=== PATIENT | female | born 1980 | race Caucasian/White ===

== ENCOUNTER 2022-10-27 06:59 | Outpatient (OUT) | payer BC, SELFPAY ==
--- NOTE | 2022-10-27 07:01 | MM_ITS ---
Patient: RENEA RAMOS Exam Date: 10/27/2022 : 1980 Gender:F Ordering : DR VESTA MCCAULEY Admission #: [id number] Family : DR REMIGIO ANDUJAR M.D. Order #: [id number] CLICK HERE TO VIEW EXAM RADIOLOGY REPORT PROCEDURE: MM TOMOSYNTHESIS SCREENING BI COMPARISON: MG MAMM SCREEN 3D BRITNI CAD, 10/26/2021. MG MAMM SCREEN 3D BRITNI CAD, 10/22/2020. MG MAMM SCREEN BRITNI W CAD, 10/21/2019. MG MAMM SCREEN BRITNI W CAD, 10/01/2018. INDICATIONS: Screening Calculator Name NCI Breast Cancer Risk Assessment Tool 5 Year Breast Cancer Risk 0.80% Lifetime Breast Cancer Risk 9.80% Personal Breast Cancer No Personal Ovarian Cancer No Treatments None Family Cancers None LOCATION: [facility] BREAST COMPOSITION: Heterogeneously dense,which may obscure small masses. FINDINGS: DIAGNOSTIC CATEGORY 1--NEGATIVE. RIGHT BREAST: No significant suspicious finding. No significant change has occurred. LEFT BREAST: No significant suspicious finding. No significant change has occurred. RECOMMENDATIONS: ROUTINE MAMMOGRAM AND CLINICAL EVALUATION IN 12 MONTHS. PLEASE NOTE: A NORMAL MAMMOGRAM DOES NOT EXCLUDE THE POSSIBILITY OF BREAST CANCER. A CLINICALLY SUSPICIOUS PALPABLE LUMP SHOULD BE BIOPSIED. Dictated by: Ned Chin M.D. on 10/27/2022 at 14:51 Approved by: Ned Chin M.D. on 10/27/2022 at 14:53
== END 2022-10-27 07:00 | disposition home or self-care (01) ==
LOC: MAMMO 06:59
PROVIDERS: PCP Family Medicine; Visit Provider Obstetrics & Gynecology
DX: Z12.31 Encounter for screening mammogram for malignant neoplasm of breast (principal)
CPT/HCPCS: 77063; 77067

== ENCOUNTER 2023-10-29 09:26 | Outpatient (OUT) | payer BC, SELFPAY ==
--- NOTE | 2023-10-29 09:31 | MM_ITS ---
Patient Name: RENEA RAMOS MR#: [id number] : 1980 Exam Date: 10/29/2023 Ordering Doctor: DR VESTA MCCAULEY RADIOLOGY REPORT PROCEDURE: MM TOMOSYNTHESIS SCREENING BI COMPARISON: MG MAMM SCREEN 3D BRITNI CAD, 10/26/2021. MM TOMOSYNTHESIS SCREENING BI, 10/27/2022. INDICATIONS: Screening Calculator Name NCI Breast Cancer Risk Assessment Tool 5 Year Breast Cancer Risk 0.80% Lifetime Breast Cancer Risk 9.70% Personal Breast Cancer No Personal Ovarian Cancer No Treatments None Family Cancers None LOCATION: [facility] BREAST COMPOSITION: The breasts are heterogeneously dense,which may obscure small masses. FINDINGS: DIAGNOSTIC CATEGORY 2--BENIGN FINDING. NO CHANGE FROM COMPARISON. Scattered benign-appearing lymph nodes are present. RIGHT BREAST: No significant suspicious finding. LEFT BREAST: No significant suspicious finding. RECOMMENDATIONS: ROUTINE MAMMOGRAM AND CLINICAL EVALUATION IN 12 MONTHS. PLEASE NOTE: A NORMAL MAMMOGRAM DOES NOT EXCLUDE THE POSSIBILITY OF BREAST CANCER. A CLINICALLY SUSPICIOUS PALPABLE LUMP SHOULD BE BIOPSIED. Dictated by: Josemanuel Akhtar MD on 10/29/2023 at 10:33 Approved by: Josemanuel Akhtar MD on 10/29/2023 at 10:35
== END 2023-10-29 09:27 | disposition home or self-care (01) ==
LOC: MAMMO 09:26
PROVIDERS: PCP Family Medicine; Visit Provider Obstetrics & Gynecology
DX: Z12.31 Encounter for screening mammogram for malignant neoplasm of breast (principal)
CPT/HCPCS: 77063; 77067

== ENCOUNTER 2024-11-03 07:30 | Outpatient (OUT) | payer BC, SELFPAY ==
--- NOTE | 2024-11-03 07:32 | MM_ITS ---
Patient Name: RENEA RAMOS MR#: [id number] : 1980 Exam Date: 11/03/2024 Ordering Doctor: DR VESTA MCCAULEY RADIOLOGY REPORT PROCEDURE: MM TOMOSYNTHESIS SCREENING BI COMPARISON: MM TOMOSYNTHESIS SCREENING BI, 10/29/2023. MM TOMOSYNTHESIS SCREENING BI, 10/27/2022. MG MAMM SCREEN 3D BRITNI CAD, 10/26/2021. MG MAMM SCREEN BRITNI W CAD, 10/01/2018. INDICATIONS: Screening Calculator Name NCI Breast Cancer Risk Assessment Tool 5 Year Breast Cancer Risk 0.90% Lifetime Breast Cancer Risk 9.60% Personal Breast Cancer No Personal Ovarian Cancer No Treatments None Family Cancers None LOCATION: [facility] BREAST COMPOSITION: There are scattered areas of fibroglandular density. FINDINGS: RIGHT BREAST: No significant suspicious finding. LEFT BREAST: No significant suspicious finding. DIAGNOSTIC CATEGORY 1--NEGATIVE. RECOMMENDATIONS: ROUTINE MAMMOGRAM AND CLINICAL EVALUATION IN 12 MONTHS. PLEASE NOTE: A NORMAL MAMMOGRAM DOES NOT EXCLUDE THE POSSIBILITY OF BREAST CANCER. A CLINICALLY SUSPICIOUS PALPABLE LUMP SHOULD BE BIOPSIED. Dictated by: Polo Amor MD on 11/03/2024 at 12:34 Approved by: Polo Amor MD on 11/03/2024 at 12:39
--- OUTSIDE RECORDS SUMMARY | 2024-11-03 07:33 | XMS_ITS | CCD ---
Author Organization [facility] Inform ion Partnership [facility] Care Team Providers Care Hanger Name Role Phone DR ARMANDO ANDUJAR Primary Care Unavailable GARRICK, DR LEMONS Admitting Unavailable GARRICK, DR LEMONS Attending Unavailable MELISSA, DR KALLIE Holbrook Consulting Unavailable DR VESTA MCCAULEY Consulting Unavailable Lissette Bush Unavailable DO Vesta Mccauley Attending Provider MD Armando Andujar Primary Care Provider Vesta Mccauley Admitting Unavailable Armando Andujar Primary Care Unavailable Vesta Mccauley Attending Unavailable Armando Andujar Primary Care Unavailable Vesta Mccauley Attending Unavailable Vesta Mccauley Admitting Unavailable Armando Andujar MD Primary Care Provider [phone] Armadno Andujar MD Primary Care Provider [phone] ALAN SLOAN Attending Unavailable ARMANDO ANDUJAR Primary Care Unavailable MARYBEL WILL Attending Unavailable ARMANDO ANDUJAR Primary Care Unavailable Armando Andujar MD Unavailable ARMANDO ANDUJAR Attending Unavailable VESTA MCCAULEY Attending Unavailable VESTA MCCAULEY Attending Unavailable VESTA MCCAULEY Attending Unavailable VESTA MCCAULEY Referring Unavailable ARMANDO ANDUJAR Attending Unavailable ARMANDO ANDUJAR Attending Unavailable Allergies Allergy Classification Reported Allergen(s) Allergy Type Date of Onset Reaction(s) Facility (9 sources) Codeine; Translations: [CODEINE] Drug Allergy 10-31-2022 Unknown [facility] (1 source) Codeine Drug Allergy 09-28-[address] [facility] Repository Medications Current Medications Medication Drug Class(es) Dates Sig (Normalized) Sig (Original) acetaminophen 500 mg oral capsule (8 sources) Start: 09-20-2023 Acetaminophen 500 MG capsule 09/20/2023 Active Start: 09-20-2023 take 1-2 capsules by mouth every six hours as needed Acetaminophen Active MG PO September 20, 2023 12:00am FreeTextSi-2 capsule as needed Orally every 6 hrs; Note: Source Status: Taking; Provider: Venu Flores ( ) estradiol 1 mg oral tablet (6 sources) Estrogen Start: 10-22-2023 End: 10-21-2024 take 1 tablet by mouth once daily estradiol (Estrace) 1 MG tablet Indications: Aftercare following surgery , Hormone replacement therapy (HRT) Take 1 tablet (1 mg) by mouth Daily 90 tablet 3 10/22/2023 10/21/2024 Active 24 hr fexofenadine hydrochloride 180 mg / pseudoephedrine hydrochloride 240 mg extended release oral tablet (4 sources) alpha-Adrenergic Agonist, Histamine-1 Receptor Antagonist Start: 04-28-2024 End: 04-28-2025 take 24-180 tablets by mouth every twenty-fou r hours fexofenadine-pseudoep hedrine ER (Moni-D 24) 180-240 MG 24 hr tablet Indications: ETD (Eustachian tube dysfunction), bilateral Take 1 tablet by mouth Daily Do not crush, chew, or split. 30 tablet 11 04/28/2024 04/28/2025 Active ibuprofen 400 mg oral tablet (6 sources) Nonsteroidal Anti-inflammatory Drug take 1 tablet by mouth every six hours as needed for pain ibuprofen 400 MG tablet Take 400 mg by mouth every 6 (six) hours if needed for moderate pain Active methylPREDNISolone 4 mg oral tablet (1 source) Corticosteroid Start: 11-10-2021 methylPREDNISolone 4 MG as directed Orally Once a day for 6 days Oct, Active SUMAtriptan 25 mg oral tablet (9 sources) Serotonin-1b and Serotonin-1d Receptor Agonist Start: 09-20-2023 take 8 tablets by mouth every twenty-fou r hours Sumatriptan Succinate (Imitrex) 25 mg tablet Active 25 MG PO EVERY 2-4 HOURS September 20, 2023 12:00am do not exceed 8 doses per 24 hrs SUMAtriptan (Imi trex) 50 MG tablet every 12 (twelve) hours. Active Imitrex Active traMADol hydrochloride 50 mg oral tablet (3 sources) Opioid Agonist Start: 09-28-2023 End: 04-07-2024 traMADol (Ultram) 50 MG tablet Q4H 09/28/2023 04/07/2024 Discontinued (Other) Completed/Discontinued Medications Medication Drug Class(es) Dates Sig (Normalized) Sig (Original) amoxicillin 500 mg oral tablet (4 sources) Penicillin-class Antibacterial Start: 04-07-2024 End: 04-28-2024 take 2 tablets by mouth in the morning amoxicillin (Amoxil) 500 MG tablet Indications: Non-recurrent acute suppurative otitis media of right ear without spontaneous rupture of tympanic membrane Take 2 tablets (1,000 mg) by mouth in the morning and 2 tablets (1,000 mg) before bedtime. Do all this for 10 days. 40 tablet 04/15/2024 04/28/2024 Discontinued (Other) Augmentin Tablets 875 MG (1 source) Start: 03-30-2015 take 1 tablet by mouth every twelve hours Augmentin Tablets 875 MG 1 by mouth every 12 hours for 10 days Mar, Not-Taking Problems Active Problems Problem Classification Problem Date Documented Da te Episodic/Chronic Abdominal pain (1 source) Abdominal pain; Translations: [Unspecified abdominal pain] 09-28-2023 Episodic Diabetes mellitus without complication (2 sources) Abnormal glucose tolerance test; Translations: [Other abnormal glucose] 09-30-2024 Episodic Essential hypertension (4 sources) Benign essential hypertension; Translations: [Essential (primary) hypertension] Onset: 09-30-2024 09-30-2024 Chronic Headache; including migraine (6 sources) Menstrual status migrainosus; Translations: [Menstrual migraine, not intractable, with status migrainosus] Onset: 10-31-2022 10-31-2022 Chronic Menstrual disorders (2 sources) Excessive and frequent menstruation with regular cycle; Translations: [Excessive and frequent menstruation with irregular cycle] Onset: 09-20-2023 Chronic Other non-traumatic joint disorders (6 sources) Derangement of right ankle joint; Translations: [Other specific joint derangements of right ankle, not elsewhere classified] Onset: 10-31-2022 10-31-2022 Chronic Thyroid disorders (8 sources) Goiter; Translations: [Nontoxic goiter, unspecified] Onset: 10-31-2022 10-31-2022 Chronic Past or Other Problems Problem Classification Problem Date Documented Date Episodic/Chronic Other nervous system disorders (6 sources) Right trigeminal neuralgia; Translations: [Trigeminal neuralgia] Onset: 04-28-2024 04-28-2024 Episodic Other screening for suspected conditions (not mental disorders or infectious disease) (10 sources) Encounter for screening mammogram for malignant neoplasm of breast; Translations: [Mammography abnormal] Onset: 10-26-2021 Episodic Other upper respiratory disease (4 sources) Hypertrophy of nasal turbinates; Translations: [Hypertrophy of nasal turbinates] Onset: 06-11-2024 06-11-2024 Episodic Other upper respiratory disease (4 sources) Deviated nasal septum; Translations: [Deviated nasal septum] Onset: 06-11-2024 06-11-2024 Episodic Other upper respiratory infections (7 sources) Streptococcal sore throat; Translations: [Streptococcal sore throat] Onset: 10-31-2022 10-31-2022 Episodic Otitis media and related conditions (18 sources) Acute suppurative otitis media without spontaneous rupture of ear drum; Translations: [Acute suppurative otitis media without spontaneous rupture of ear drum, right ear] Onset: 04-07-2024 04-07-2024 Episodic Poisoning by nonmedicinal substances (1 source) Toxic effect of venom of hornets, accidental (unintentional), initial encounter Onset: 11-10-2021 Resolved: 11-10-2021 Episodic Unclassified (1 source) eustacian tube dysfunction Onset: 06-11-2024 Viral infection (6 sources) Verruca plantaris; Translations: [Plantar wart] Onset: 10-31-2022 10-31-2022 Episodic Results Test Name Value Interpretation Reference Range Facility CBC (INCLUDES DIFF/PLT)on Basophils (Bld) [#/Vol] 0.049 10*3/uL Normal 0-200 [facility] Comment on above: Performed By: #### 1 0231, 2510, 3729 #### [facility] [address], [address] [place] [id number] Principal Military Analyst: Tom Holder MD Basophils/100 WBC (Bld) 1.0 % Normal [facility] Comment on above: Performed By: #### 1 0231, 7599, 6399 #### [facility] of [address], [address] [place] [address] Principal Military Analyst: Tom Holder MD Eosinophils (Bld) [#/Vol] 0.078 10*3/uL Normal 15-500 [facility] Comment on above: Performed By: #### 1 023, 7599, 6399 #### [facility] of [address], [address] [place] [address] Principal Military Analyst: Tom Holder MD Eosinophils/100 WBC (Bld) 1.6 % Normal [facility] Comment on above: Performed By: #### 1 023, 7599, 6399 #### [facility] of [place] [address] Principal Military Analyst: Tom Holder MD Erythrocyte distribution width (RBC) [Ratio] 12.3 % Normal 11.0-15.0 [facility] Comment on above: Performed By: #### 1 023, 7599, 6399 #### [facility] of [address], [address] [place] [address] Principal Military Analyst: Tom Holder MD Hematocrit (Bld) [Volume fraction] 42.4 % Normal 35.0-45.0 [facility] Comment on above: Performed By: #### 1 023, 7599, 6399 #### [facility] of [place] [address] Principal Military Analyst: Tom Holder MD Hemoglobin (Bld) [Mass/Vol] 14.1 g/dL Normal 11.7-15.5 [facility] Comment on above: Performed By: #### 1 0231, 7599, 6399 #### [facility] of [place] [address] Principal Military Analyst: Tom Holder MD Lymphocytes (Bld) [#/Vol] 2.293 10*3/uL Normal 850-3900 [facility] Comment on above: Performed By: #### 1 023, 7599, 6399 #### [facility] [place] [address] Principal Military Analyst: Tom Holder MD Lymphocytes/100 WBC (Bld) 46.8 % Normal [facility] Comment on above: Performed By: #### 1 230, 7599, 6399 #### [facility] [place] [address] Principal Military Analyst: Tom Holder MD MCH (RBC) [Entitic mass] 30.4 pg Normal 27.0-33.0 [facility] Comment on above: Performed By: #### 1 230, 7599, 6399 #### [facility] [place] [address] Principal Military Analyst: Tom Holder MD MCHC (RBC) [Mass/Vol] 33.3 g/dL Normal 32.0-36.[address] [facility] Comment on above: Result Comment: For adults, a slight decrease in the calculated MCHC value (in the range of 30 to 32 g/dL) is most likely not clinically significant; however, it should be interpreted with caution in correlation with other red cell parameters and the patient's clinical condition. Performed By: #### 1 230, 7599, 6399 #### [facility] [place] [address] Principal Military Analyst: Tom Holder MD MCV (RBC) [Entitic vol] 91.4 fL Normal 80.0-100.0 [facility] Comment on above: Performed By: #### 1 230, 7599, 6399 #### [facility] [place] [address] Principal Military Analyst: Tom Holder MD Monocytes (Bld) [#/Vol] 0.466 10*3/uL Normal 200-950 [facility] Comment on above: Performed By: #### 1 023, 7599, 6399 #### [facility] [place] [address] Principal Military Analyst: Tom Holder MD Monocytes/100 WBC (Bld) 9.5 % Normal [facility] Comment on above: Performed By: #### 1 023, 7599, 6399 #### [facility] of [place] [address] Principal Military Analyst: Tom Holder MD Neutrophils (Bld) [#/Vol] 2.014 10*3/uL Normal 6408-5956 [facility] Comment on above: Performed By: #### 1 0231, 7599, 6399 #### [facility] of [address], [address] [place] [address] Principal Military Analyst: Tom Holedr MD Neutrophils/100 WBC (Bld) 41.1 % Normal [facility] Comment on above: Performed By: #### 1 023, 7599, 6399 #### [facility] of [place] [address] Principal Military Analyst: Tom Holder MD Platelet mean volume (Bld) [Entitic vol] 9.7 fL Normal 7.5-12.5 [facility] Comment on above: Performed By: #### 1 023, 7599, 6399 #### [facility] of [place] [address] Principal Military Analyst: Tom Holder MD Platelets (Bld) [#/Vol] 261 10*3/uL Normal 140-400 [facility] Comment on above: Performed By: #### 1 023, 7599, 6399 #### [facility] of [place] [address] Principal Military Analyst: Tom Holder MD RBC (Bld) [#/Vol] 4.64 10*6/uL Normal 3.80-5.10 [facility] Comment on above: Performed By: #### 1 0231, 7599, 6399 #### [facility] of [place] [address] Principal Military Analyst: Tom Holder MD WBC (Bld) [#/Vol] 4.9 10*3/uL Normal 3.8-10.8 [facility] Comment on above: Performed By: #### 1 0231, 7599, 6399 #### [facility] of [address], [address] [place] [address] Principal Military Analyst: Tom Holder MD [facility] METABOLIC PANE [facility] 10-01-2024 Albumin [Mass/Vol] 4.5 g/dL Normal 3.6-5.1 [facility] Comment on above: Performed By: #### 1 0231, 0, 6399 #### [facility] of [address], [address] [place] [address] Principal Military Analyst: Tom Holder MD Albumin/Globulin [Mass ratio] 1.6 {ratio} Normal 1.0-2.5 [facility] Comment on above: Performed By: #### 1 0231, 7599, 6399 #### [facility] of [address], [address] [place] [address] Principal Military Analyst: Tom Holder MD ALP [Catalytic activity/Vol] 38 U/L Normal 31-125 [facility] Comment on above: Performed By: #### 1 023, 7599, 6399 #### [facility] of [place] [address] Principal Military Analyst: Tom Holder MD ALT [Catalytic activity/Vol] 16 U/L Normal 6-29 [facility] Comment on above: Performed By: #### 1 023, 7599, 6399 #### [facility] of [address], [address] [place] [address] Principal Military Analyst: Tom Holder MD AST [Catalytic activity/Vol] 17 U/L Normal 10-35 [facility] Comment on above: Performed By: #### 1 0231, 0, 6399 #### [facility] of [place] [address] Principal Military Analyst: Tom Holder MD Bilirubin [Mass/Vol] 0.8 mg/dL Normal 0.2-1.2 [facility] Comment on above: Performed By: #### 1 0231, 7599, 6399 #### [facility] of [address], [address] [place] [address] Principal Military Analyst: Tom Holder MD BUN/CREATININE RATIO SEE NOTE: Normal 6-22 [facility] Comment on above: Result Comment: Not Reported: BUN and Creatinine are within reference range. Performed By: #### 1 0231, 7600, 6399 #### [facility] [address], [address] [place] [address] Principal Military Analyst: Tom Holder MD Calcium [Mass/Vol] 9.8 mg/dL Normal 8.6-10.2 [facility] Comment on above: Performed By: #### 1 0231, 0, 6399 #### [facility] [address], [address] [place] [address] Principal Military Analyst: Tom Holder MD Chloride [Moles/Vol] 103 mmol/L Normal 98-110 [facility] Comment on above: Performed By: #### 1 0231, 0, 6399 #### [facility] of [address], [address] [place] [address] Principal Military Analyst: Tom Holder MD CO2 [Moles/Vol] 29 mmol/L Normal 20-32 [facility] Comment on above: Performed By: #### 1 0231, 0, 6399 #### [facility] [place] [address] Principal Military Analyst: Tom Holder MD Creatinine [Mass/Vol] 0.80 mg/dL Normal 0.50-0.[address] [facility] Comment on above: Performed By: #### 1 0231, 0, 6399 #### [facility] of [address], [address] [place] [address] Principal Military Analyst: Tom Holder MD GFR/1.73 sq M.predicted among non-blacks MDRD (S/P/Bld) [Vol rate/Area] 92 mL/min/{1.73_m2} Normal > OR = 60 [facility] Comment on above: Performed By: #### 1 0231, 0, 6399 #### [facility] of [address], [address] [place] [address] Principal Military Analyst: Tom Holder MD Globulin (S) [Mass/Vol] 2.8 g/dL Normal 1.9-3.7 [facility] Comment on above: Performed By: #### 1 0231, 7600, 6399 #### [facility] of [address], [address] [place] [address] Principal Military Analyst: Tom Holder MD Glucose [Mass/Vol] 80 mg/dL Normal 65-99 [facility] Comment on above: Result Comment: Fasting reference interval Performed By: #### 1 0231, 7600, 6399 #### [facility] of [address], [address] [place] [address] Principal Military Analyst: Tom Holder MD Potassium [Moles/Vol] 4.2 mmol/L Normal 3.5-5.[address] [facility] Comment on above: Performed By: #### 1 0231, 7599, 6399 #### [facility] of [address], [address] [place] [address] Principal Military Analyst: Tom Holder MD Protein [Mass/Vol] 7.3 g/dL Normal 6.1-8.1 [facility] Comment on above: Performed By: #### 1 0231, 7600, 6399 #### [facility] of [address], [address] [place] [address] Principal Military Analyst: Tom Holder MD Sodium [Moles/Vol] 139 mmol/L Normal 135-146 [facility] Comment on above: Performed By: #### 1 0231, 7600, 6399 #### [facility] of [address], [address] [place] [address] Principal Military Analyst: Tom Holder MD Urea nitrogen [Mass/Vol] 11 mg/dL Normal 7-25 [facility] Comment on above: Performed By: #### 1 0231, 7600, 6399 #### [facility] of [address], [address] [place] [address] Principal Military Analyst: Tom Holder MD LIPID PANEL, [facility] 09-14 Cholesterol [Mass/Vol] 234 mg/dL High <200 [facility] Comment on above: Order Comment: FASTI NG:YES FASTING: YES Performed By: #### 1 0231, 7600, 6399 #### [facility] [address], [address] [place] [address] Principal Military Analyst: Tom Holder MD Cholesterol in HDL [Mass/Vol] 71 mg/dL Normal > OR = 50 [facility] Comment on above: Order Comment: FASTI NG:YES FASTING: YES Performed By: #### 1 0231, 7600, 6399 #### [facility] [address], [address] [place] [address] Principal Military Analyst: Tom Holder MD Cholesterol in LDL [Mass/Vol] 147 mg/dL High [facility] Comment on above: Order Comment: FASTI NG:YES FASTING: YES Result Comment: Refe rence range: <100 Desirable range <100 mg/dL for primary prevention; <70 mg/dL for patients with CHD or diabetic patients with > or = 2 CHD risk factors. LDL-C is now calculated using the Michael-Mehul calculation, which is a validated novel method providing better accuracy than the Friedewald equation in the estimation of LDL-C. Michael RIVERA et al. JONATHAN. 2013;310(19): 8479-8408 (http://education.[employer]/faq/YZS059) Performed By: #### 1 0231, 8210, 6399 #### [facility] [address], [address] [place] [address] Principal Military Analyst: Tom Holder MD Cholesterol.total/Chol esterol in HDL [Mass ratio] 3.3 {ratio} Normal <5.0 [facility] Comment on above: Order Comment: FASTI NG:YES FASTING: YES Performed By: #### 1 0231, 7600, 6399 #### [facility] [address], [address] [place], [place] [id number] Principal Military Analyst: Tom Holder MD NON HDL CHOLESTEROL 163 mg/dL (calc) High <130 [facility] Comment on above: Order Comment: FASTI NG:YES FASTING: YES Result Comment: For patients with diabetes plus 1 major ASCVD risk factor, treating to a non-HDL-C goal of <100 mg/dL (LDL-C of <70 mg/dL) is considered a therapeutic option. Performed By: #### 1 0231, 7600, 6399 #### [facility] [address], [address] [place] [address] Principal Military Analyst: Tom Holder MD Triglyceride [Mass/Vol] 68 mg/dL Normal <150 [facility] Comment on above: Order Comment: FASTI NG:YES FASTING: YES Performed By: #### 1 0231, 7600, 6399 #### [facility] [address], [address] [place] [address] Principal Military Analyst: Tom Holder MD TSH W/REFLEX TO FT4on 2024 TSH W/REFLEX TO FT4 1.66 mIU/L Normal [facility] Comment on above: Result Comment: Refe rence Range > or = 20 Years 0.40-4.50 Ranges First trimester 0.26-2.66 Second trimester 0.55-2.73 Third trimester 0.43-2.91 Performed By: #### 1 0231, 7600, 6399 #### [facility] [address], [address] [place] [address] Principal Military Analyst: Tom Holder MD Activated partial thrombopla stin time (aPTT) in platelet poor plasma by coagulation aOrdered By: Vesta Mccauley on 09-28-2023 aPTT Coag (PPP) [Time] 26.8 s 25.1-36.5 [facility] Comment on above: A hematocrit value g reater than 55% may lead to inaccurate results in coagulation testing. Patients having hematocrit values >55% require a special collection tube for coagulation studies. Please contact the laboratory at [phone] for redraw instructions. Alanine aminotransferase [En zymatic activity/volume] in Serum or PlasmaOrdered By: Vesta Mccauley on 09-28-2023 ALT [Catalytic activity/Vol] 12 U/L Normal 7-52 [facility] Comment on above: Performed By: #### P T, PTT, CBC, CMP #### [address] Albumin [Mass/volume] in Ser um or Plasma by Bromocresol green (BCG) dye binding methoOrdered By: Vesta Mccauley on 09-28-2023 Albumin BCG dye [Mass/Vol] 3.8 g/dL 3.5-5.[address] [facility] Alkaline phosphatase [Enzyma tic activity/volume] in Serum or PlasmaOrdered By: Vesta Mccauley on 09-28-2023 ALP [Catalytic activity/Vol] 38 U/L Normal 34-[address] [facility] Comment on above: Performed By: #### P T, PTT, CBC, CMP #### [address] Aspartate aminotransferase [ Enzymatic activity/volume] in Serum or PlasmaOrdered By: Vesta Mccauley on 09-28-2023 AST [Catalytic activity/Vol] 14 U/L Normal 13-[address] [facility] Comment on above: Performed By: #### P T, PTT, CBC, CMP #### [address] Automated basophil %Ordered By: Vesta Mccauley on 09-28-2023 Basophils/100 WBC (Bld) 1.0 % Normal . [facility] Comment on above: Performed By: #### P T, PTT, CBC, CMP #### [address] Automated basophil countOrde red By: Vesta Mccauley on 09-28-2023 Basophils (Bld) [#/Vol] 0.1 10*3/uL Normal 0.0-0.[address] [facility] Comment on above: Result Comment: PERF ORMED BY: [place] [address] PATHOLOGIST BLOCK INSPECTOR EPHRAIM STEWART M.D. Performed By: #### P T, PTT, CBC, CMP #### [address] Automated blood monocyte cou ntOrdered By: Vesta Mccauley on 09-28-2023 Monocytes (Bld) [#/Vol] 0.7 10*3/uL Normal 0.0-0.[address] [facility] Comment on above: Performed By: #### P T, PTT, CBC, CMP #### [address] Automated eosinophil %Ordere d By: Vesta Mccauley on 09-28-2023 Eosinophils/100 WBC (Bld) 3.1 % Normal . [facility] Comment on above: Performed By: #### P T, PTT, CBC, CMP #### [address] Automated eosinophil countOr dered By: Vesta Mccauley on 09-28-2023 Eosinophils (Bld) [#/Vol] 0.2 10*3/uL Normal 0.0-0.[address] [facility] Comment on above: Performed By: #### P T, PTT, CBC, CMP #### [address] Automated monocyte %Ordered By: Vesta Mccauley on 09-28-2023 Monocytes/100 WBC (Bld) 13.2 % Normal . [facility] Comment on above: Performed By: #### P T, PTT, CBC, CMP #### [address] Automated neutrophil %Ordere d By: Vesta Mccauley on 09-28-2023 Neutrophils/100 WBC (Bld) 49.1 % Normal . [facility] Comment on above: Performed By: #### P T, PTT, CBC, CMP #### [address] Bilirubin.total [Mass/volume ] in Serum or PlasmaOrdered By: Vesta Mccauley on 09-28-2023 Bilirubin [Mass/Vol] 0.5 mg/dL Normal 0.3-1.0 [facility] Comment on above: Performed By: #### P T, PTT, CBC, CMP #### [address] Calcium [Mass/volume] in Ser um or PlasmaOrdered By: Vesta Mccauley on 09-28-2023 Calcium [Mass/Vol] 8.6 mg/dL Normal 8.6-10.3 [facility] Comment on above: Performed By: #### P T, PTT, CBC, CMP #### [address] Carbon dioxide, total [Moles /volume] in Serum or PlasmaOrdered By: Vesta Mccauley on 09-28-2023 CO2 [Moles/Vol] 24.6 mmol/L Normal 21.0-31.0 [facility] Comment on above: Performed By: #### P T, PTT, CBC, CMP #### [address] Chloride [Moles/volume] in S romina or PlasmaOrdered By: Vesta Mccauley on 09-28-2023 Chloride [Moles/Vol] 108 mmol/L High 98-107 [facility] Comment on above: Performed By: #### P T, PTT, CBC, CMP #### [address] Complete Blood Count Auto Di ffon 09-28-2023 Mean Corpuscular HGB Conc 33.8 g/dL Normal 32.0-35.0 [facility] Comment on above: Performed By: #### P T, PTT, CBC, CMP #### [address] NRBC% 0.1 /100{WBC} Normal 0-0.5 [facility] Comment on above: Performed By: #### P T, PTT, CBC, CMP #### [facility] [address] [place] [address] Comprehensive Metabolic Pane noemí 09-28-2023 Albumin [Mass/Vol] 3.8 g/dL Normal 3.5-5.7 [facility] Comment on above: Performed By: #### P T, PTT, CBC, CMP #### [address] Creatinine Clr Calc Pharmacy 95.19 Normal [facility] Comment on above: Result Comment: PERF ORMED BY: [place] [address] PATHOLOGIST BLOCK INSPECTOR EPHRAIM STEWART M.D. Performed By: #### P T, PTT, CBC, CMP #### [address] GFR/1.73 sq M.predicted MDRD (S/P/Bld) [Vol rate/Area] mL/min/{1.73_m2} Normal [facility] Comment on above: Performed By: #### P T, PTT, CBC, CMP #### [address] Creatinine [Mass/volume] in Serum or PlasmaOrdered By: Vesta Mccauley on 09-28-2023 Creatinine [Mass/Vol] 0.78 mg/dL Normal 0.60-1.20 [facility] Comment on above: Performed By: #### P T, PTT, CBC, CMP #### [address] Erythrocyte distribution wid th [Ratio] by Automated countOrdered By: Vesta Mccauley on 09-28-2023 Erythrocyte distribution width (RBC) [Ratio] 15.0 % Normal 11.9-15.[address] [facility] Comment on above: Performed By: #### P T, PTT, CBC, CMP #### [address] Erythrocytes [#/volume] in B lood by Automated countOrdered By: Vesta Mccauley on 09-28-2023 RBC (Bld) [#/Vol] 3.42 10*6/uL Low 3.60-5.00 [facility] Comment on above: Performed By: #### P T, PTT, CBC, CMP #### [address] Glucose [Mass/volume] in Ser um or PlasmaOrdered By: Vesta Mccauley on 09-28-2023 Glucose [Mass/Vol] 98 mg/dL Normal 70-100 [facility] Comment on above: ADA recommended refe rence rangeRandom Glucose Reference Range is dependent on time and content of last meal. Glucose of more than 200 mg/dL in a nonstressed, ambulatory subject supports the diagnosis of Diabetes Mellitus. Result Comment: [place] om Glucose Reference Range is dependent on time and content of last meal. Glucose of more than 200 mg/dL in a nonstressed, ambulatory subject supports the diagnosis of Diabetes Mellitus. ADA recommended reference range Performed By: #### P T, PTT, CBC, CMP #### [address] HCG ( test) IA.rapi d Ql (U)Ordered By: Brayden Kumar on 09-28-2023 HCG ( test) Ql (U) Negative [facility] HCG,Urineon 09-28-2023 Beta HCG ( test) Ql (U) Negative Normal [facility] Comment on above: Result Comment: PERF ORMED BY: [place] [address] PATHOLOGIST BLOCK INSPECTOR EPHRAIM STEWART M.D. Performed By: #### U HCG ####[facility] [place] [address] Hematocrit [Volume Fraction] of Blood by Automated countOrdered By: Vesta Mccauley on 09-28-2023 Hematocrit (Bld) [Volume fraction] 29.4 % Low 34.0-46.[address] [facility] Comment on above: Performed By: #### P T, PTT, CBC, CMP #### [address] Hemoglobin [Mass/volume] in BloodOrdered By: Vesta Mccauley on 09-28-2023 Hemoglobin (Bld) [Mass/Vol] 9.9 g/dL Low 11.8-15.[address] [facility] Comment on above: Performed By: #### P T, PTT, CBC, CMP #### [address] INR in Platelet poor plasma by Coagulation assayOrdered By: Vesta Mccauley on 09-28-2023 INR Coag (PPP) [Relative time] 1.1 {INR} Normal [facility] Comment on above: INR Therapeutic Rang e A) Pre- and Peroperative OAT started two weeks before surgery. NOT HIP SURGERY: 1.5 - 2.5 HIP SURGERY: 2 - 3B) Primary and secondary prevention of venous THROMBOSIS: 2 - 3C) Active venous thrombosis, pulmonary embolismand prevention of recurrent venous thrombosis: 2 - 3D) Prevention of arterial thromboembolismincluding patients with mechanical heart valves: 3 - 4.5 Result Comment: INR Therapeutic Range A) Pre- and Peroperative OAT started two weeks before surgery. NOT HIP SURGERY: 1.5 - 2.5 HIP SURGERY: 2 - 3 B) Primary and secondary prevention of venous THROMBOSIS: 2 - 3 C) Active venous thrombosis, pulmonary embolism and prevention of recurrent venous thrombosis: 2 - 3 D) Prevention of arterial thromboembolism including patients with mechanical heart valves: 3 - 4.5 Performed By: #### P T, PTT, CBC, CMP #### [address] 09-28-2023 L Specimen: [id number] Received: 09/28/23 Status: RAJINDER Guan Num: [id number] Spec Type: Surgical Subm Dr: Vesta Mccauley DO Tissues: A Uterus w/ or w/o tubes ovaries except neoplastic or prolap (CERVIX, BRITNI TU Procedures: HE/, Gross/Micro L5 Age/ Patient Sex Location Account Attending Physician Renea Coleman 43/F [place] [id number] Vesta Mccauley DO SPEC NUM: [id number] RECD: 09/28/23 STATUS: RAJINDER GUAN NUM: [id number] DIANE: 09/28/23- SUBM DR: Vesta Mccauley DO ENTERED: 09/28/[address] [facility] [address]: SPEC TYPE: Surgical DEPT: S ORDERED: HE/, Gross/Micro L5 ORDERED: HE, Gross/Micro L5 Pathological Diagnosis Uterus, cervix, bilateral tubes and ovaries, total hysterectomy with bilateral salpingo oophorectomy: -Cervix with occasional nabothian cysts, and small focal healing superficial chronic u lceration above 1 cyst with moderate congestion without dysplasia -Corpus with desynchronized endometrium including weakly proliferative glandular activity, and occasional weakly type secretory glands without hyperplasia or atypia -Incidental focal mild chronic post ablation change of the superficial endometrial mucosa -Incidental patchy severe adenomyosis without secondary hyperplasia or atypia -Right ovary with multiple and large follicular cysts, a few small corpus albicans including 1 evolving corpus albicans, and 1 large residual luteal cyst with possibly small admixed portion of chocolate cystic wall -Left ovary also with multiple small follicular cysts, 1 small Walthard type cyst, 1 large corpus luteum, several small corpus albicans and some other small resolving elements similar to the right ovary -Fimbriated right fallopian tube without significant histopathological changes except 1 small inclusion cyst of the tubal type, and 1 small focus of tubal endometriosis without atypia -Fimbriated left fallopian tube also without significant histopathological findings except few small inclusion cysts of the tubal type, and 1 small Walthard cyst Specimen: [id number] Received: 09/28/23 Status: RAJINDER Guan Num: [id number] Spec Type: Surgical Subm Dr: Vesta Mccauley DO Tissues: A Uterus w/ or w/o tubes ovaries except neoplastic or prolap (CERVIX, BRITNI TU Procedures: , Gross/Micro L5 Patient: Renea Coleman [id number] (Continued) Specimen: [id number] Received: 09/28/23 (Continued) Signed (signature on file) Anton Rivera MD 10/01/231910 Specimen: [id number] Received: 09/28/23 Status: RAJINDER Jayalex Num: [id number] Spec Type: Surgical Subm Dr: Vesta Mccauley,DO Tissues: A Uterus w/ or w/o tubes ovaries except neoplastic or prolap (CERVIX, BRITNI TU Procedures: , Gross/Micro L5 Patient: Renea Coleman [id number] (Continued) Specimen: [id number] Received: 09/28/23 (Continued) Clinical Information Cyst of right ovary, menorrhagia, dysmenorrhea, endometriosis, weight 218 g Gross Description Received in formalin, labeled with the patient's name, date of and uterus, cervix, bilateral tubes and ovaries is a 195 g uterus with attached cervix and bilateral adnexa. The uterus measures 5.4 cm cornu to cornu, 9.3 cm fundus to os, 4.3 cm anterior-posterior and covered by smooth and glistening wolfe-purple serosa. The roughened brown cervix is 1.8 cm long and 3.4 cm wide, leading to a 3.2 x 2.9 cm ectocervix with a 0.5 x 0.2 cm wide os. The 3.5 cm long and 0.3-0.9 cm wide endocervical canal leads to a triangular 4.6 cm fundus to internal os and 2.6 cm cornu to cornu endometrial cavity. Sectioning into the cervix demonstrates multiple mucinous filled cysts ranging from 0.1 to 0.6 cm. The soft wolfe-pink 0.1 cm thick endometrium overlies a 2.1 cm thick wolfe trabeculated myometrium. There is a 0.3 x 0.3 cm possible hemorrhagic cyst located within the posterior myometrium. No additional cysts, nodules or discrete masses are identified. The right adnexa involves a 44.4 g, 6.1 x 4.5 x 4.1 cm lobulated, cystic wolfe-purple with an attached 5.2 cm in length by 0.6 to 0.7 cm in diameter fimbriated fallopian tube covered by unremarkable wolfe-purple serosa. Sectioning into the ovary demonstrates a cystic cut surface ranging from 3.4 cm to 0.3 cm and containing hemorrhagic and translucent serous contents. There is normal ovari (more content not included)... Normal [facility] LeukoReduced RBCon LeukoReduced RBC READY Normal [facility] Leukocytes [#/volume] correc christy for nucleated erythrocytes in Blood by Automated counOrdered By: Vesta Mccauley on 09-28-2023 WBC corrected for nucl RBC Auto (Bld) [#/Vol] 5.6 10*3/uL 3.8-11.[address] [facility] Leukocytes [#/volume] in Blo od by Automated countOrdered By: Vesta Mccauley on 09-28-2023 WBC (Bld) [#/Vol] 5.6 10*3/uL Normal 3.8-11.6 [facility] Comment on above: Performed By: #### P T, PTT, CBC, CMP #### [facility] [address] Lymphocytes [#/volume] in Bl ood by Automated countOrdered By: Vesta Mccauley on 09-28-2023 Lymphocytes (Bld) [#/Vol] 1.9 10*3/uL Normal 1.00-4.[address] [facility] Comment on above: Performed By: #### P T, PTT, CBC, CMP #### [address] Lymphocytes/100 leukocytes i n Blood by Automated countOrdered By: Vesta Mccauley on 09-28-2023 Lymphocytes/100 WBC (Bld) 33.6 % Normal . [facility] Comment on above: Performed By: #### P T, PTT, CBC, CMP #### [address] MCH [Entitic mass] by Automa christy countOrdered By: Vesta Mccauley on 09-28-2023 MCH (RBC) [Entitic mass] 29.1 pg Normal 24.7-34.[address] [facility] Comment on above: Performed By: #### P T, PTT, CBC, CMP #### [address] MCHC Auto (RBC) [Mass/Vol]Or dered By: Vesta Mccauley on 09-28-2023 MCHC (RBC) [Mass/Vol] 33.8 g/dL 32.0-35.0 [facility] MCV [Entitic volume] by Auto mated countOrdered By: Vesta Mccauley on 09-28-2023 MCV (RBC) [Entitic vol] 86.0 fL Normal 80-[address] [facility] Comment on above: Performed By: #### P T, PTT, CBC, CMP #### [address] Neutrophils [#/volume] in Bl ood by Automated countOrdered By: Vesta Mccauley on 09-28-2023 Neutrophils (Bld) [#/Vol] 2.7 10*3/uL Normal 1.8-7.[address] [facility] Comment on above: Performed By: #### P T, PTT, CBC, CMP #### [facility] [address] [place] [address] No Panel InformationOrdered By: Vesta Mccauley on 09-28-2023 Estimated GFR (CKD-EPI) > 60.0 mL/Min [facility] Creatinine Clearance (Chem 95.[address] [facility] Nucleated erythrocytes [Pres ence] in Blood by Automated countOrdered By: Vesta Mccauley on 09-28-2023 Nucleated RBC Auto Ql (Bld) 0.1 /100{WBC} 0-0.[address] [facility] Partial Thromboplastin Timeo n 09-28-2023 aPTT Coag (Bld) [Time] 26.8 s Normal 25.1-36.5 [facility] Comment on above: Result Comment: A he matocrit value greater than 55% may lead to inaccurate results in coagulation testing. Patients having hematocrit values >55% require a special collection tube for coagulation studies. Please contact the laboratory at [phone] for redraw instructions. PERFORMED BY: [place] [address] PATHOLOGIST BLOCK INSPECTOR EPHRAIM STEWART M.D. Performed By: #### P T, PTT, CBC, CMP #### [facility] [address] [place] [address] Platelet mean volume [Entiti c volume] in Blood by Automated countOrdered By: Vesta Mccauley on 09-28-2023 Platelet mean volume (Bld) [Entitic vol] 7.0 fL Normal 6.3-10.[address] [facility] Comment on above: Performed By: #### P T, PTT, CBC, CMP #### [facility] [address] [place] [address] Platelets [#/volume] in Bloo d by Automated countOrdered By: Vesta Mccauley on 09-28-2023 Platelets (Bld) [#/Vol] 276 10*3/uL Normal 150-[address] [facility] Comment on above: Performed By: #### P T, PTT, CBC, CMP #### [facility] [address] Potassium [Moles/volume] in Serum or PlasmaOrdered By: Vesta Mccauley on 09-28-2023 Potassium [Moles/Vol] 4.1 mmol/L Normal 3.5-5.1 [facility] Comment on above: Performed By: #### P T, PTT, CBC, CMP #### [address] Protein [Mass/volume] in Ser um or PlasmaOrdered By: Vesta Mccauley on 09-28-2023 Protein [Mass/Vol] 6.5 g/dL Normal 6.4-8.9 [facility] Comment on above: Performed By: #### P T, PTT, CBC, CMP #### [address] Prothrombin time (PT)Ordered By: Vesta Mccauley on 09-28-2023 PT Coag (PPP) [Time] 12.4 s Normal 9.0-12.9 [facility] Comment on above: A hematocrit value g reater than 55% may lead to inaccurate results in coagulation testing. Patients having hematocrit values >55% require a special collection tube for coagulation studies. Please contact the laboratory at [phone] for redraw instructions. Result Comment: A he matocrit value greater than 55% may lead to inaccurate results in coagulation testing. Patients having hematocrit values >55% require a special collection tube for coagulation studies. Please contact the laboratory at [phone] for redraw instructions. Performed By: #### P T, PTT, CBC, CMP #### [address] Serum globulin measurement b y calculation (mass/volume)Ordered By: Vesta Mccauley on 09-28-2023 Globulin (S) [Mass/Vol] 2.7 g/dL Normal [facility] Comment on above: Performed By: #### P T, PTT, CBC, CMP #### [address] Serum or plasma albumin/glob ulin mass ratioOrdered By: Vesta Mccauley on 09-28-2023 Albumin/Globulin [Mass ratio] 1.4 {ratio} Normal [facility] Comment on above: Performed By: #### P T, PTT, CBC, CMP #### [address] Serum or plasma anion gap de terminationOrdered By: Vesta Mccauley on 09-28-2023 Anion gap [Moles/Vol] 8.5 mmol/L Normal 6.0-15.0 [facility] Comment on above: Performed By: #### P T, PTT, CBC, CMP #### [facility] [address] [place] [address] Sodium [Moles/volume] in Ser um or PlasmaOrdered By: Vesta Mccauley on 09-28-2023 Sodium [Moles/Vol] 137 mmol/L Normal 136-145 [facility] Comment on above: Performed By: #### P T, PTT, CBC, CMP #### [facility] [address] [place] [address] Type and Screenon 09-28-2023 ABO and Rh group Nom (Bld) Blood group O Rh(D) positive Normal [facility] Comment on above: Order Comment: ON HO LD. PT HAVING SURGERY 09/27/23. Transfuse now? N Result Comment: PERF ORMED BY: [place] [address] PATHOLOGIST BLOCK INSPECTOR EPHRAIM STEWART M.D. Urea nitrogen [Mass/volume] in Serum or PlasmaOrdered By: Vesta Mccauley on 09-28-2023 Urea nitrogen [Mass/Vol] 12 mg/dL Normal 7-[address] [facility] Comment on above: Performed By: #### P T, PTT, CBC, CMP #### [facility] [address] [place] [address] Alanine aminotransferase [En zymatic activity/volume] in Serum or PlasmaOrdered By: Vesta Mccauley on 09-21-2023 ALT [Catalytic activity/Vol] 8 U/L Normal 7-[address] [facility] Comment on above: Performed By: #### C MP ####[address] Albumin [Mass/volume] in Ser um or Plasma by Bromocresol green (BCG) dye binding methoOrdered By: Vesta Mccauley on 09-21-2023 Albumin BCG dye [Mass/Vol] 3.1 g/dL 3.5-5.[address] [facility] Alkaline phosphatase [Enzyma tic activity/volume] in Serum or PlasmaOrdered By: Vesta Mccauley on 09-21-2023 ALP [Catalytic activity/Vol] 30 U/L Low 34-[address] [facility] Comment on above: Performed By: #### C MP ####[address] Aspartate aminotransferase [ Enzymatic activity/volume] in Serum or PlasmaOrdered By: Vesta Mccauley on 09-21-2023 AST [Catalytic activity/Vol] 10 U/L Low 13-[address] [facility] Comment on above: Performed By: #### C MP ####[address] Automated basophil %Ordered By: Vesta Mccauley on 09-21-2023 Basophils/100 WBC (Bld) 0.4 % Normal . [facility] Comment on above: Performed By: #### C BC ####[address] Automated basophil countOrde red By: Vesta Mccauley on 09-21-2023 Basophils (Bld) [#/Vol] 0.0 10*3/uL Normal 0.0-0.[address] [facility] Comment on above: Result Comment: PERF ORMED BY: [facility] [address] [place] [place] [address] PATHOLOGIST BLOCK INSPECTOR EPHRAIM STEWART M.D. Performed By: #### C BC ####[address] Automated blood monocyte cou ntOrdered By: Vesta Mccauley on 09-21-2023 Monocytes (Bld) [#/Vol] 1.1 10*3/uL High 0.0-0.[address] [facility] Comment on above: Performed By: #### C BC ####[address] Automated eosinophil %Ordere d By: Vesta Mccauley on 09-21-2023 Eosinophils/100 WBC (Bld) 0.0 % Normal . [facility] Comment on above: Performed By: #### C BC ####[address] Automated eosinophil countOr dered By: Vesta Mccauley on 09-21-2023 Eosinophils (Bld) [#/Vol] 0.0 10*3/uL Normal 0.0-0.[address] [facility] Comment on above: Performed By: #### C BC ####[address] Automated monocyte %Ordered By: Vesta Mccauley on 09-21-2023 Monocytes/100 WBC (Bld) 10.8 % Normal . [facility] Comment on above: Performed By: #### C BC ####[address] Automated neutrophil %Ordere d By: Vesta Mccauley on 09-21-2023 Neutrophils/100 WBC (Bld) 70.1 % Normal . [facility] Comment on above: Performed By: #### C BC ####[address] Bilirubin.total [Mass/volume ] in Serum or PlasmaOrdered By: Vesta Mccauley on 09-21-2023 Bilirubin [Mass/Vol] 1.3 mg/dL High 0.3-1.0 [facility] Comment on above: Samples from patient s who have taken Naproxen have shown spurious elevation in Total Bilirubin levels. A metabolite of Naproxen, O-desmethylnaproxen, has been shown to interfere with the Jendrassik-Grof method for measuring Total Bilirubin. Result Comment: Samp les from patients who have taken Naproxen have shown spurious elevation in Total Bilirubin levels. A metabolite of Naproxen, O-desmethylnaproxen, has been shown to interfere with the Jendrassik-Grof method for measuring Total Bilirubin. Performed By: #### C MP ####[place] [id number] [facility] Calcium [Mass/volume] in Ser um or PlasmaOrdered By: Vesta Mccauley on 09-21-2023 Calcium [Mass/Vol] 7.8 mg/dL Low 8.6-10.3 [facility] Comment on above: Performed By: #### C MP ####[address] Carbon dioxide, total [Moles /volume] in Serum or PlasmaOrdered By: Vesta Mccauley on 09-21-2023 CO2 [Moles/Vol] 24.1 mmol/L Normal 21.0-31.0 [facility] Comment on above: Performed By: #### C MP ####[address] Chloride [Moles/volume] in S romina or PlasmaOrdered By: Vesta Mccauley on 09-21-2023 Chloride [Moles/Vol] 111 mmol/L High 98-107 [facility] Comment on above: Performed By: #### C MP ####[place] [id number] [facility] Complete Blood Count Auto Di ffon 09-21-2023 Mean Corpuscular HGB Conc 34.3 g/dL Normal 32.0-35.0 [facility] Comment on above: Performed By: #### C BC ####[place] [id number] [facility] NRBC% 0.1 /100{WBC} Normal 0-0.5 [facility] Comment on above: Performed By: #### C BC ####[place] [id number] [facility] Comprehensive Metabolic Pane noemí 09-21-2023 Albumin [Mass/Vol] 3.1 g/dL Low 3.5-5.7 [facility] Comment on above: Performed By: #### C MP ####[place] [id number] [facility] Creatinine Clr Calc Pharmacy 114.22 Normal [facility] Comment on above: Result Comment: PERF ORMED BY: [facility] [address] [place] [id number] PATHOLOGIST BLOCK INSPECTOR EPHRAIM STEWART M.D. Performed By: #### C MP ####[place] [id number] [facility] GFR/1.73 sq M.predicted MDRD (S/P/Bld) [Vol rate/Area] mL/min/{1.73_m2} Normal [facility] Comment on above: Performed By: #### C MP ####[place] [id number] [facility] Creatinine [Mass/volume] in Serum or PlasmaOrdered By: Vesta Mccauley on 09-21-2023 Creatinine [Mass/Vol] 0.65 mg/dL Normal 0.60-1.20 [facility] Comment on above: Performed By: #### C MP ####[place] [id number] [facility] Erythrocyte distribution wid th [Ratio] by Automated countOrdered By: Vesta Mccauley on 09-21-2023 Erythrocyte distribution width (RBC) [Ratio] 14.6 % Normal 11.9-15.[address] [facility] Comment on above: Performed By: #### C BC ####[place] [id number] [facility] Erythrocytes [#/volume] in B lood by Automated countOrdered By: Vesta Mccauley on 09-21-2023 RBC (Bld) [#/Vol] 3.06 10*6/uL Low 3.60-5.00 [facility] Comment on above: Performed By: #### C BC ####[place] [id number] [facility] Glucose [Mass/volume] in Ser um or PlasmaOrdered By: Vesta Mccauley on 09-21-2023 Glucose [Mass/Vol] 134 mg/dL High 70-100 [facility] Comment on above: ADA recommended refe rence rangeRandom Glucose Reference Range is dependent on time and content of last meal. Glucose of more than 200 mg/dL in a nonstressed, ambulatory subject supports the diagnosis of Diabetes Mellitus. Result Comment: [place] Glucose Reference Range is dependent on time and content of last meal. Glucose of more than 200 mg/dL in a nonstressed, ambulatory subject supports the diagnosis of Diabetes Mellitus. ADA recommended reference range Performed By: #### C MP ####[address] Hematocrit [Volume Fraction] of Blood by Automated countOrdered By: Vesta Mccauley on 09-21-2023 Hematocrit (Bld) [Volume fraction] 26.0 % Low 34.0-46.[address] [facility] Comment on above: Performed By: #### C BC ####[address] Hemoglobin [Mass/volume] in BloodOrdered By: Vesta Mccauley on 09-21-2023 Hemoglobin (Bld) [Mass/Vol] 8.9 g/dL Low 11.8-15.[address] [facility] Comment on above: Performed By: #### C BC ####[address] Leukocytes [#/volume] correc christy for nucleated erythrocytes in Blood by Automated counOrdered By: Vesta Mccauley on 09-21-2023 WBC corrected for nucl RBC Auto (Bld) [#/Vol] 10.2 10*3/uL 3.8-11.[address] [facility] Leukocytes [#/volume] in Blo od by Automated countOrdered By: Vesta Mccauley on 09-21-2023 WBC (Bld) [#/Vol] 10.2 10*3/uL Normal 3.8-11.6 [facility] Comment on above: Performed By: #### C BC ####[address] Lymphocytes [#/volume] in Bl ood by Automated countOrdered By: Vesta Mccauley on 09-21-2023 Lymphocytes (Bld) [#/Vol] 1.9 10*3/uL Normal 1.00-4.[address] [facility] Comment on above: Performed By: #### C BC ####[address] [place] [address] [place] Lymphocytes/100 leukocytes i n Blood by Automated countOrdered By: Vesta Mccauley on 09-21-2023 Lymphocytes/100 WBC (Bld) 18.7 % Normal . [facility] Comment on above: Performed By: #### C BC ####[address] MCH [Entitic mass] by Automa christy countOrdered By: Vesta Mccauley on 09-21-2023 MCH (RBC) [Entitic mass] 29.2 pg Normal 24.7-34.[address] [facility] Comment on above: Performed By: #### C BC ####[address] MCHC Auto (RBC) [Mass/Vol]Or dered By: Vesta Mccauley on 09-21-2023 MCHC (RBC) [Mass/Vol] 34.3 g/dL 32.0-35.0 [facility] MCV [Entitic volume] by Auto mated countOrdered By: Vesta Mccauley on 09-21-2023 MCV (RBC) [Entitic vol] 85.1 fL Normal 80-[address] [facility] Comment on above: Performed By: #### C BC ####[address] Neutrophils [#/volume] in Bl ood by Automated countOrdered By: Vesta Mccauley on 09-21-2023 Neutrophils (Bld) [#/Vol] 7.1 10*3/uL Normal 1.8-7.[address] [facility] Comment on above: Performed By: #### C BC ####[address] No Panel InformationOrdered By: Vesta Mccauley on 09-21-2023 Estimated GFR (CKD-EPI) > 60.0 mL/Min [facility] Creatinine Clearance (Chem 114.[address] [facility] Nucleated erythrocytes [Pres ence] in Blood by Automated countOrdered By: Vesta Mccauley on 09-21-2023 Nucleated RBC Auto Ql (Bld) 0.1 /100{WBC} 0-0.[address] [facility] Platelet mean volume [Entiti c volume] in Blood by Automated countOrdered By: Vesta Mccauley on 09-21-2023 Platelet mean volume (Bld) [Entitic vol] 8.0 fL Normal 6.3-10.[address] [facility] Comment on above: Performed By: #### C BC ####[address] Platelets [#/volume] in Bloo d by Automated countOrdered By: Vesta Mccauley on 09-21-2023 Platelets (Bld) [#/Vol] 206 10*3/uL Normal 150-[address] [facility] Comment on above: Performed By: #### C BC ####[address] Potassium [Moles/volume] in Serum or PlasmaOrdered By: Vesta Mccauley on 09-21-2023 Potassium [Moles/Vol] 3.8 mmol/L Normal 3.5-5.1 [facility] Comment on above: Performed By: #### C MP ####[address] Protein [Mass/volume] in Ser um or PlasmaOrdered By: Vesta Mccauley on 09-21-2023 Protein [Mass/Vol] 5.2 g/dL Low 6.4-8.9 [facility] Comment on above: Performed By: #### C MP ####[address] Serum globulin measurement b y calculation (mass/volume)Ordered By: Vesta Mccauley on 09-21-2023 Globulin (S) [Mass/Vol] 2.1 g/dL [facility] Comment on above: Performed By: #### C MP ####[address] Serum or plasma albumin/glob ulin mass ratioOrdered By: Vesta Mccauley on 09-21-2023 Albumin/Globulin [Mass ratio] 1.5 {ratio} [facility] Comment on above: Performed By: #### C MP ####[facility] [place] [address] [facility] Serum or plasma anion gap de terminationOrdered By: Vesta Mccauley on 09-21-2023 Anion gap [Moles/Vol] 7.7 mmol/L Normal 6.0-15.0 [facility] Comment on above: Performed By: #### C MP ####[address] [place] [address] [facility] Sodium [Moles/volume] in Ser um or PlasmaOrdered By: Vesta Mccauley on 09-21-2023 Sodium [Moles/Vol] 139 mmol/L Normal 136-145 [facility] Comment on above: Performed By: #### C MP ####[address] [address] [facility] Urea nitrogen [Mass/volume] in Serum or PlasmaOrdered By: Vesta Mccauley on 09-21-2023 Urea nitrogen [Mass/Vol] 8 mg/dL Normal 7-[address] [facility] Comment on above: Performed By: #### C MP ####[address] [address] [facility] Activated partial thrombopla stin time (aPTT) in platelet poor plasma by coagulation aOrdered By: Vesta Mccauley on 09-20-2023 aPTT Coag (PPP) [Time] 24.9 s 25.1-36.5 [facility] Comment on above: A hematocrit value g reater than 55% may lead to inaccurate results in coagulation testing. Patients having hematocrit values >55% require a special collection tube for coagulation studies. Please contact the laboratory at [phone] for redraw instructions. Complete Blood Count Auto Di ffon 09-20-2023 Basophils (Bld) [#/Vol] 0.1 10*3/uL Normal 0.0-0.2 [facility] Comment on above: Result Comment: PERF ORMED BY: [facility] [address] [place] [address] PATHOLOGIST BLOCK INSPECTOR EPHRAIM STEWART M.D. Performed By: #### C BC ####[id number] [place] [address] Basophils/100 WBC (Bld) 0.9 % Normal . [facility] Comment on above: Performed By: #### C BC ####[address] Eosinophils (Bld) [#/Vol] 0.0 10*3/uL Normal 0.0-0.45 [facility] Comment on above: Performed By: #### C BC ####[address] Eosinophils/100 WBC (Bld) 0.1 % Normal . [facility] Comment on above: Performed By: #### C BC ####[address] Erythrocyte distribution width (RBC) [Ratio] 14.3 % Normal 11.9-15.3 [facility] Comment on above: Performed By: #### C BC ####[address] Hematocrit (Bld) [Volume fraction] 23.4 % Low 34.0-46.4 [facility] Comment on above: Performed By: #### C BC ####[address] Hemoglobin (Bld) [Mass/Vol] 8.0 g/dL Low 11.8-15.4 [facility] Comment on above: Performed By: #### C BC ####[address] Lymphocytes (Bld) [#/Vol] 0.8 10*3/uL Low 1.00-4.8 [facility] Comment on above: Performed By: #### C BC ####[address] Lymphocytes/100 WBC (Bld) 13.9 % Normal . [facility] Comment on above: Performed By: #### C BC ####[address] MCH (RBC) [Entitic mass] 28.5 pg Normal 24.7-34.3 [facility] Comment on above: Performed By: #### C BC ####[address] MCV (RBC) [Entitic vol] 83.6 fL Normal 80-100 [facility] Comment on above: Performed By: #### C BC ####[address] Mean Corpuscular HGB Conc 34.1 g/dL Normal 32.0-35.0 [facility] Comment on above: Performed By: #### C BC ####[address] Monocytes (Bld) [#/Vol] 0.1 10*3/uL Normal 0.0-0.8 [facility] Comment on above: Performed By: #### C BC ####[address] Monocytes/100 WBC (Bld) 2.5 % Normal . [facility] Comment on above: Performed By: #### C BC ####[address] Neutrophils (Bld) [#/Vol] 4.9 10*3/uL Normal 1.8-7.7 [facility] Comment on above: Performed By: #### C BC ####[address] Neutrophils/100 WBC (Bld) 82.6 % Normal . [facility] Comment on above: Performed By: #### C BC ####[address] NRBC% 0.1 /100{WBC} Normal 0-0.5 [facility] Comment on above: Performed By: #### C BC ####[address] Platelet mean volume (Bld) [Entitic vol] 7.8 fL Normal 6.3-10.7 [facility] Comment on above: Performed By: #### C BC ####[facility] Platelets (Bld) [#/Vol] 248 10*3/uL Normal 150-450 [facility] Comment on above: Performed By: #### C BC ####[facility] [place] [address] RBC (Bld) [#/Vol] 2.80 10*6/uL Low 3.60-5.00 [facility] Comment on above: Performed By: #### C BC ####[facility] [place] [address] WBC (Bld) [#/Vol] 5.9 10*3/uL Normal 3.8-11.6 [facility] Comment on above: Performed By: #### C BC ####[place] [address] [place] Basophils (Bld) [#/Vol] 0.0 10*3/uL Normal 0.0-0.2 [facility] Comment on above: Result Comment: PERF ORMED BY: [place] [address] PATHOLOGIST BLOCK INSPECTOR EPHRAIM STEWART M.D. Performed By: #### P TT, PT, CBC #### [place] [address] [place] Basophils/100 WBC (Bld) 0.5 % Normal . [facility] Comment on above: Performed By: #### P TT, PT, CBC #### [facility] [address] [place] [address] [place] Eosinophils (Bld) [#/Vol] 0.0 10*3/uL Normal 0.0-0.45 [facility] Comment on above: Performed By: #### P TT, PT, CBC #### [facility] [address] [place] [address] [place] Eosinophils/100 WBC (Bld) 0.3 % Normal . [facility] Comment on above: Performed By: #### P TT, PT, CBC #### [address] Erythrocyte distribution width (RBC) [Ratio] 14.1 % Normal 11.9-15.3 [facility] Comment on above: Performed By: #### P TT, PT, CBC #### [address] Hematocrit (Bld) [Volume fraction] 22.2 % Low 34.0-46.4 [facility] Comment on above: Performed By: #### P TT, PT, CBC #### [address] Hemoglobin (Bld) [Mass/Vol] 7.5 g/dL Low 11.8-15.4 [facility] Comment on above: Performed By: #### P TT, PT, CBC #### [address] Lymphocytes (Bld) [#/Vol] 1.3 10*3/uL Normal 1.00-4.8 [facility] Comment on above: Performed By: #### P TT, PT, CBC #### [address] Lymphocytes/100 WBC (Bld) 23.6 % Normal . [facility] Comment on above: Performed By: #### P TT, PT, CBC #### [address] MCH (RBC) [Entitic mass] 28.2 pg Normal 24.7-34.3 [facility] Comment on above: Performed By: #### P TT, PT, CBC #### [address] MCV (RBC) [Entitic vol] 83.0 fL Normal 80-100 [facility] Comment on above: Performed By: #### P TT, PT, CBC #### [address] Mean Corpuscular HGB Conc 34.0 g/dL Normal 32.0-35.0 [facility] Comment on above: Performed By: #### P TT, PT, CBC #### [facility] [address] [place] [address] [place] Monocytes (Bld) [#/Vol] 0.5 10*3/uL Normal 0.0-0.8 [facility] Comment on above: Performed By: #### P TT, PT, CBC #### [facility] [address] [place] [address] [place] Monocytes/100 WBC (Bld) 9.7 % Normal . [facility] Comment on above: Performed By: #### P TT, PT, CBC #### [place] [address] [place] Neutrophils (Bld) [#/Vol] 3.7 10*3/uL Normal 1.8-7.7 [facility] Comment on above: Performed By: #### P TT, PT, CBC #### [place] [address] [place] Neutrophils/100 WBC (Bld) 65.9 % Normal . [facility] Comment on above: Performed By: #### P TT, PT, CBC #### [place] [address] [place] NRBC% 0.1 /100{WBC} Normal 0-0.5 [facility] Comment on above: Performed By: #### P TT, PT, CBC #### [place] [address] [place] Platelet mean volume (Bld) [Entitic vol] 7.4 fL Normal 6.3-10.7 [facility] Comment on above: Performed By: #### P TT, PT, CBC #### [place] [address] [place] Platelets (Bld) [#/Vol] 231 10*3/uL Normal 150-450 [facility] Comment on above: Performed By: #### P TT, PT, CBC #### [place] [address] [place] RBC (Bld) [#/Vol] 2.67 10*6/uL Low 3.60-5.00 [facility] Comment on above: Performed By: #### P TT, PT, CBC #### [facility] [address] WBC (Bld) [#/Vol] 5.6 10*3/uL Normal 3.8-11.6 [facility] Comment on above: Performed By: #### P TT, PT, CBC #### [facility] [address] HCG ( test) IA.rapi d Ql (U)Ordered By: Brayden Kumar on 09-20-2023 HCG ( test) Ql (U) Negative [facility] HCG,Urineon 09-20-2023 Beta HCG ( test) Ql (U) Negative Normal [facility] Comment on above: Result Comment: PERF ORMED BY: [place] [address] PATHOLOGIST BLOCK INSPECTOR EPHRAIM STEWART M.D. Performed By: #### U HCG ####[facility] [address] [place] [address] INR in Platelet poor plasma by Coagulation assayOrdered By: Vesta Mccauley on 09-20-2023 INR Coag (PPP) [Relative time] 1.2 {INR} Normal [facility] Comment on above: INR Therapeutic Rang e A) Pre- and Peroperative OAT started two weeks before surgery. NOT HIP SURGERY: 1.5 - 2.5 HIP SURGERY: 2 - 3B) Primary and secondary prevention of venous THROMBOSIS: 2 - 3C) Active venous thrombosis, pulmonary embolismand prevention of recurrent venous thrombosis: 2 - 3D) Prevention of arterial thromboembolismincluding patients with mechanical heart valves: 3 - 4.5 Result Comment: INR Therapeutic Range A) Pre- and Peroperative OAT started two weeks before surgery. NOT HIP SURGERY: 1.5 - 2.5 HIP SURGERY: 2 - 3 B) Primary and secondary prevention of venous THROMBOSIS: 2 - 3 C) Active venous thrombosis, pulmonary embolism and prevention of recurrent venous thrombosis: 2 - 3 D) Prevention of arterial thromboembolism including patients with mechanical heart valves: 3 - 4.5 Performed By: #### P TT, PT, CBC #### [facility] [address] 09-20-2023 L Specimen: [id number] Received: 09/20/23 Status: RAJINDER Jayalex Num: [id number] Spec Type: Surgical Subm Dr: Vesta Mccauley DO Tissues: A Endometrium - Curettings (EMC) B Endometrium - Curettings (MORE [facility]) Procedures: HE/18, Gross/Micro L4/2 Age/ Patient Sex Location Account Attending Physician Renea Coleman 43/F 3S [id number] Vesta Mccauley DO SPEC NUM: [id number] RECD: 09/20/23 STATUS: RAJINDER GUAN NUM: [id number] DIANE: 09/20/23- SUBM DR: Vesta Mccauley DO ENTERED: 09/20/[address] [facility] [address]: SPEC TYPE: Surgical DEPT: S ORDERED: HE/18, Gross/Micro L4/2 ORDERED: HE/18, Gross/Micro L4/2 Pathological Diagnosis A, endometrial curettings: -Desynchronized endometrium, manifesting disordered proliferative endometrium of the at least early phase type, but also with background mildly superimposed and/or persistent secretory activity, in addition to the occasionally noticed biopsy fragments of endometrial polyp (at least 6 mm) with occasionally associated simple hyperplasia without atypia B, small endometrial curettings: -Multiple strips of the desynchronized disordered proliferative endometrium similar to the part A specimen, and also with occasional biopsy fragments of endometrial polyp (at least 6 mm and partly physiological type), and a few small scattered foci of the associated simple hyperplasia without atypia are also apparent Clinical Information Abnormal uterine bleeding, acute anemia blood loss Gross Description Received are 2 formalin filled containers each labeled with the patient's name, date of and specific specimen site. A. Further labeled endometrial curettings is an aggregate of wolfe tissue admixed with mucus and clotted blood on a Telfa pad measuring 2.6 x 2.4 x 0.6 cm. The specimen is Specimen: [id number] Received: 09/20/23 Status: RAJINDER Guan Num: [id number] Spec Type: Surgical Subm Dr: Vesta Mccauley DO Tissues: A Endometrium - Curettings (EMC) B Endometrium - Curettings (MORE [facility]) Procedures: , Marleen/Rohit L4/2 Patient: Renea Coleman [id number] (Continued) Specimen: [id number] Received: 09/20/23 (Continued) Gross Description (Continued) Signed (signature on file) Anton Rivera MD 09/21/23 0858 Specimen: [id number] Received: 09/20/23 Status: RAJINDER Guan Num: [id number] Spec Type: Surgical Subm Dr: Vesta Mccauley DO Tissues: A Endometrium - Curettings (EMC) B Endometrium - Curettings (MORE [facility]) Procedures: , Marleen/Rohit L4/2 Patient: Renea Coleman [id number] (Continued) Specimen: [id number] Received: 09/20/23-1304 (Continued) Gross Description (Continued) entirely submitted in A1?A2. B. Further labeled more endometrial curettings is an aggregate of wolfe-pink tissue admixed with clotted blood and mucus within a vacuum suction device collectively measuring 5.5 x 2.9 x 0.4 cm. The specimen is entirely submitted in B1?B4. [facility] Codes 44386L6 Specimen: [id number] Received: 09/20/23 Status: RAJINDER Guan Num: [id number] Spec Type: Surgical Subm Dr: Vesta Mccauley DO Tissues: A Endometrium - Curettings (EMC) B Endometrium - Curettings ([facility]) Procedures: HE/18, Gross/Rohit L4/2 Patient: Renea Colmean [id number] (Continued) Signed (signature on file) Anton Rivera MD 09/21/23 0858 Normal [facility] LeukoReduced RBCon 4 LeukoReduced RBC TRANSFUSED 09/20/23 1416 Normal [facility] Partial Thromboplastin Timeo n 09-20-2023 aPTT Coag (Bld) [Time] 24.9 s Low 25.1-36.5 [facility] Comment on above: Result Comment: A he matocrit value greater than 55% may lead to inaccurate results in coagulation testing. Patients having hematocrit values >55% require a special collection tube for coagulation studies. Please contact the laboratory at [phone] for redraw instructions. PERFORMED BY: [facility] [place] [address] PATHOLOGIST BLOCK INSPECTOR EPHRAIM STEWART M.D. Performed By: #### P TT, PT, CBC #### [facility] [address] [place], [place] [address] [facility] Prothrombin time (PT)Ordered By: Vesta Mccauley on 09-20-2023 PT Coag (PPP) [Time] 13.4 s High 9.0-12.9 [facility] Comment on above: A hematocrit value g reater than 55% may lead to inaccurate results in coagulation testing. Patients having hematocrit values >55% require a special collection tube for coagulation studies. Please contact the laboratory at [phone] for redraw instructions. Result Comment: A he matocrit value greater than 55% may lead to inaccurate results in coagulation testing. Patients having hematocrit values >55% require a special collection tube for coagulation studies. Please contact the laboratory at [phone] for redraw instructions. Performed By: #### P TT, PT, CBC #### [facility] [address] [place], [place] [address] [facility] Type and Screenon 09-20-2023 ABO and Rh group Nom (Bld) Blood group O Rh(D) positive Normal [facility] Comment on above: Order Comment: Trans fuse now? Y Number of units to transfuse now? 3 Result Comment: PERF ORMED BY: [address] [address] PATHOLOGIST BLOCK INSPECTOR EPHRAIM STEWART M.D. MG MAMM SCREEN 3D BRITNI CADon 10-26-2021 MG MAMM SCREEN 3D BRITNI CAD Patient: RENEA COLEMAN Exam Date: 10/26/2021 : 1980 Gender:F Ordering : DR VESTA MCCAULEY Admission #: [id number] Family : DR ARMANDO ANDUJAR M.D. Order #: [id number] CLICK HERE TO VIEW EXAM RADIOLOGY REPORT PROCEDURE: MAMMOGRAM SCREENING 3D BILATERAL CAD COMPARISON: MG MAMM SCREEN 3D BRITNI CAD, 10/22/2020. MG MAMM SCREEN BRITNI W CAD, 10/21/2019. INDICATIONS: Screening mammography Calculator Name NCI Breast Cancer Risk Assessment Tool 5 Year Breast Cancer Risk 0.70% Lifetime Breast Cancer Risk 9.90% Personal Breast Cancer No Personal Ovarian Cancer No Treatments None Family Cancers None LOCATION: [facility] BREAST COMPOSITION: Heterogeneously dense,which may obscure small masses. FINDINGS: DIAGNOSTIC CATEGORY 1--NEGATIVE. NO CHANGE FROM COMPARISON ASSESSMENT. Scattered benign-appearing calcifications are present. Scattered benign-appearing lymph nodes are present. RIGHT BREAST: No significant suspicious finding. LEFT BREAST: No significant suspicious finding. RECOMMENDATIONS: ROUTINE MAMMOGRAM AND CLINICAL EVALUATION IN 12 MONTHS. PLEASE NOTE: A NORMAL MAMMOGRAM DOES NOT EXCLUDE THE POSSIBILITY OF BREAST CANCER. A CLINICALLY SUSPICIOUS PALPABLE LUMP SHOULD BE BIOPSIED. Dictated by: Kallie Akhtar MD on 10/26/2021 at 08:21 Approved by: Kallie Akhtar MD on 10/26/2021 at 08:22 Normal [facility] Vital Signs Date Time Vital Sign Value Performing Clinician Facility 09-30-2024 13:27-0400 Body height 175.3 cm Armando Andujar MD Work Phone: [facility] 09-30-2024 13:27-0400 Body mass index (BMI) [Ratio] 26.14 kg/m2 Armando Andujar MD Work Phone: [facility] 09-30-2024 13:27-0400 Body weight 80.29 kg Armando Andujar MD Work Phone: [facility] 09-30-2024 13:27-0400 Diastolic blood pressure 78 mm[Hg] Armando Andujar MD Work Phone: [facility] 09-30-2024 13:27-0400 Heart rate 74 /min Armando Andujar MD Work Phone: [facility] 09-30-2024 13:27-0400 SaO2% (BldA) [Mass fraction] 98 % Armando Andujar MD Work Phone: [facility] 09-30-2024 13:27-0400 Systolic blood pressure 112 mm[Hg] Armando Andujar MD Work Phone: [facility] 06-11-2024 10:05-0500 Body height 177.8 cm Alan Sloan MD Work Phone: [facility] 06-11-2024 10:05-0500 Body mass index (BMI) [Ratio] 24.39 kg/m2 Alan Sloan MD Work Phone: [facility] 06-11-2024 10:05-0500 Body weight 77.11 kg Alan Sloan MD Work Phone: [facility] 04-28-2024 14:34-0500 Body height 175.3 cm Armando Andujar MD Work Phone: [facility] 04-28-2024 14:34-0500 Body mass index (BMI) [Ratio] 26.73 kg/m2 Armando Andujar MD Work Phone: [facility] 04-28-2024 14:34-0500 Body weight 82.1 kg Armando Andujar MD Work Phone: [facility] 04-28-2024 14:34-0500 Diastolic blood pressure 78 mm[Hg] Armando Andujar MD Work Phone: [facility] 04-28-2024 14:34-0500 Heart rate 72 /min Armando Andujar MD Work Phone: [facility] 04-28-2024 14:34-0500 SaO2% (BldA) [Mass fraction] 100 % Armando Andujar MD Work Phone: [facility] 04-28-2024 14:34-0500 Systolic blood pressure 132 mm[Hg] Armando Andujar MD Work Phone: [facility] 04-07-2024 08:06-0500 Body height 175.3 cm Armando Andujar MD Work Phone: [facility] 04-07-2024 08:06-0500 Body mass index (BMI) [Ratio] 25.64 kg/m2 Armando Andujar MD Work Phone: [facility] 04-07-2024 08:06-0500 Body weight 78.74 kg Armando Andujar MD Work Phone: [facility] 04-07-2024 08:06-0500 Diastolic blood pressure 88 mm[Hg] Armando Andujar MD Work Phone: [facility] 04-07-2024 08:06-0500 Heart rate 92 /min Armando Andujar MD Work Phone: [facility] 04-07-2024 08:06-0500 SaO2% (BldA) [Mass fraction] 99 % Armando Andujar MD Work Phone: [facility] 04-07-2024 08:06-0500 Systolic blood pressure 124 mm[Hg] Armando Andujar MD Work Phone: [facility] 09-28-2023 20:05-0400 Body temperature 98.4 [degF] MD Armando Andujar Work Phone: [facility] 09-28-2023 20:05-0400 Diastolic blood pressure 58 mm[Hg] MD Armando Andujar Work Phone: [facility] 09-28-2023 20:05-0400 Heart rate 95 /min MD Armando Andujar Work Phone: [facility] 09-28-2023 20:05-0400 Respiratory rate 16 /min MD Armando Andujar Work Phone: [facility] 09-28-2023 20:05-0400 SaO2% (BldA) [Mass fraction] 99 % MD Armando Andujar Work Phone: [facility] 09-28-2023 20:05-0400 Systolic blood pressure 103 mm[Hg] MD Armando Andujar Work Phone: [facility] 09-28-2023 09:18-0400 Inhaled oxygen flow rate 8 L/min MD Armando Andujar Work Phone: [facility] 09-28-2023 07:12-0400 Body height 175.26 cm MD Armando Andujar Work Phone: [facility] 09-28-2023 07:12-0400 Body mass index (BMI) [Ratio] 25.4 kg/m2 MD Armando Andujar Work Phone: [facility] 09-28-2023 07:12-0400 Body weight 78.01 kg MD Armando Andujar Work Phone: [facility] 09-21-2023 08:50-0400 Body temperature 98 [degF] MD Armando Andujar Work Phone: [facility] 09-21-2023 08:50-0400 Diastolic blood pressure 71 mm[Hg] MD Armando Andujar Work Phone: [facility] 09-21-2023 08:50-0400 Heart rate 83 /min MD Armando Andujar Work Phone: [facility] 09-21-2023 08:50-0400 Respiratory rate 18 /min MD Armando Andujar Work Phone: [facility] 09-21-2023 08:50-0400 SaO2% (BldA) [Mass fraction] 100 % MD Armando Andujar Work Phone: [facility] 09-21-2023 08:50-0400 Systolic blood pressure 123 mm[Hg] MD Armando Andujar Work Phone: [facility] 09-20-2023 12:50-0400 Inhaled oxygen flow rate 8 L/min MD Armando Andujar Work Phone: [facility] 09-20-2023 11:46-0400 Body height 175.26 cm MD Armando Andujar Work Phone: [facility] 09-20-2023 11:46-0400 Body mass index (BMI) [Ratio] 25.4 kg/m2 MD Armando Andujar Work Phone: [facility] 09-20-2023 11:46-0400 Body weight 78.01 kg MD Armando Andujar Work Phone: [facility] 11-10-2021 18:40-0400 Body height 179.07 cm Lissette Bush Other [employer] Other 11-10-2021 18:40-0400 Body mass index (BMI) [Ratio] 25.18 kg/m2 Lissette Bush Other [employer] Other 11-10-2021 18:40-0400 Body temperature 98 [degF] Lissette Bush Other [employer] Other 11-10-2021 18:40-0400 Body weight 80.74 kg Lissette Bush Other [employer] Other 11-10-2021 18:40-0400 Diastolic blood pressure 74 mm[Hg] Lissette Bush Other [employer] Other 11-10-2021 18:40-0400 Respiratory rate 18 /min Lissette Bush Other [employer] Other 11-10-2021 18:40-0400 SaO2% (BldA) [Mass fraction] 100 % Lissette Bush Other [employer] Other 11-10-2021 18:40-0400 Systolic blood pressure 134 mm[Hg] Lissette Bush Other [employer] Other Encounters Encounter Date Encounter Type Care Provider Facility Start: 09-30-2024 End: 09-30-2024 Patient encounter procedure Armando Andujar MD Work Phone: [facility] Start: 09-30-2024 End: 09-30-2024 Periodic preventive med est patient 40-64yrs Armando Andujar MD Work Phone: [facility] Comment on above: Abnormal glucose mai erance test; Benign essential hypertension ; Enlarged thyroid ; Annual physical exam Start: 09-30-2024 End: 09-30-2024 ambulatory ARMANDO ANDUJAR Not Available Start: 06-11-2024 End: 06-11-2024 Office outpatient new 30 minutes Alan Sloan MD Work Phone: [facility] Comment on above: Dysfunction of both eustachian tubes (Primary Dx); Hypertrophy of inferior nasal turbinate; Deviated nasal septum Start: 06-11-2024 End: 06-11-2024 ambulatory ALAN SLOAN [facility] Start: 04-28-2024 End: 04-28-2024 Office outpatient visit 25 minutes Armando Andujar MD Work Phone: [facility] Comment on above: ETD (Eustachian tube dysfunction), bilateral (Primary Dx); Trigeminal neuralgia of right side of face (CMS/HCC); Non-recurrent acute suppurative otitis media of right ear without spontaneous rupture of tympanic membrane Start: 04-28-2024 End: 04-28-2024 ambulatory ARMANDO ANDUJAR Not Available Start: 04-07-2024 End: 04-07-2024 Office outpatient visit 25 minutes Armando Andujar MD Work Phone: [facility] Comment on above: Non-recurrent acute suppurative otitis media of right ear without spontaneous rupture of tympanic membrane (Primary Dx) Start: 04-07-2024 End: 04-07-2024 ambulatory ARMANDO ANDUJAR Not Available Start: 11-12-2023 End: 11-12-2023 ambulatory VESTA MCCAULEY Not Available Start: 10-22-2023 End: 10-22-2023 ambulatory VESTA MCCAULEY Not Available Start: 10-09-2023 End: 10-09-2023 ambulatory VESTA MCCAULEY Not Available Start: 09-28-2023 End: 09-28-2023 Admission to same day surgery center MD Armando Andujar Work Phone: [facility] [place] Start: 09-28-2023 End: 09-28-2023 ambulatory MD Armando Andujar Work Phone: [facility] Work Phone: Start: 09-20-2023 End: 09-21-2023 Admission to same day surgery center MD Armando Andujar Work Phone: [facility] [place] Start: 09-20-2023 End: 09-21-2023 ambulatory MD Armando Andujar Work Phone: [facility] Work Phone: Start: 11-10-2021 End: 11-10-2021 ambulatory Lissette Bush Other [employer] Other Start: 11-10-2021 Office outpatient ne w 20 minutes Lissette Bush [facility] Start: 10-26-2021 End: 10-27-[address] ARMANDO ANDUJAR Facility:[facility]1 Procedures Date Procedure Procedure Detail Performing Clinician Start: 10-29-2023 Mammography Armando Andujar MD Work Phone: Start: 09-28-2023 Antibody screen Vesta Mccauley Comment on above: Order Comment: ON HO LD. PT HAVING SURGERY 09/27/23. Transfuse now? N Result Comment: PERF ORMED BY: [facility] [address] [place] [address] PATHOLOGIST BLOCK INSPECTOR EPHRAIM STEWART M.D. Start: 09-28-2023 Total hysterectomy v ia vaginal approach MD Armando Andujar Work Phone: Start: 09-20-2023 Antibody screen Vesta Mccauley Comment on above: Order Comment: Trans fuse now? Y Number of units to transfuse now? 3 Result Comment: PERF ORMED BY: [facility] [address] [place] [address] PATHOLOGIST BLOCK INSPECTOR EPHRAIM STEWART M.D. Start: 09-20-2023 Hysteroscopy MD Armando richter Work Phone: Start: 10-26-2021 Mammography Alan Sloan MD Work Phone: Plan of Treatment Date Care Activity Detail Author Start: 01-14-2029 Screening for malign ant neoplasm of colon Colorectal Cancer Screening [facility] Comment on above: Postponed from 01/16 (Other Medical Reasons) Start: 01-17-2028 Zoster Vaccines (1 o f 2) Zoster Vaccines (1 of 2) [facility] Start: 12-15-2024 Influenza vaccination Influenz a Vaccine (Season Ended) [facility] Start: 11-14-2024 End: 11-14-2024 Patient encounter procedure 11/14/2024 9:00 AM EDT Office Visit [facility] [address] [place] [id number] Vesta Mccauley DO [address] [place] [address] [facility] Start: 10-28-2024 Screening for malign ant neoplasm of breast Mammogram [facility] Start: 09-30-2024 End: 09-30-2025 CBC W Auto Differential panel - Blood CBC and differential Lab Routine Abnormal glucose tolerance test Enlarged thyroid Annual physical exam Expected: 09/30/2024 (Approximate), Expires: 09/30/2025 [facility] Work Phone: Comment on above: Expected: 09/30/2024 (Approximate), Expires: 09/30/2025 Start: 09-30-2024 End: 09-30-2025 Comprehensive metabolic 2000 panel - Serum or Plasma Comprehensive metabolic panel Lab Routine Abnormal glucose tolerance test Enlarged thyroid Annual physical exam Expected: 09/30/2024 (Approximate), Expires: 09/30/2025 [facility] Comment on above: Expected: 09/30/2024 (Approximate), Expires: 09/30/2025 Start: 09-30-2024 End: 09-30-2025 Lipid 1996 panel - Serum or Plasma Lipid panel Lab Routine Enlarged thyroid Annual physical exam Expected: 09/30/2024 (Approximate), Expires: 09/30/2025 [facility] Comment on above: Expected: 09/30/2024 (Approximate), Expires: 09/30/2025 Start: 09-30-2024 End: 09-30-2025 TSH W/REFLEX TO FT4 TSH W/REFLEX TO FT4 Lab Routine Enlarged thyroid Annual physical exam Expected: 09/30/2024 (Approximate), Expires: 09/30/2025 [facility] Comment on above: Expected: 09/30/2024 (Approximate), Expires: 09/30/2025 Start: 08-13-2024 End: 08-13-2024 Patient encounter procedure 08/13/2024 10:40 AM EDT Office Visit [facility] [address] [place] [address] Alan Sloan MD [address] [facility] [place] [address] [facility] Start: 06-02-2024 Influenza vaccination Influenza Vacc ine (#1) [facility] Comment on above: Postponed from 12/15 (Patient Refused) Start: 12-16-2023 COVID-19 Vaccine ( season) COVID-19 Vaccine ( season) [facility] Start: 12-16-2023 Influenza vaccination Influenza Vacc ine (#1) [facility] Start: 09-28-[address] [facility] Start: 09-28-[address] [facility] Start: 09-28-2023 Hospital admission [facility] Start: 09-27-[address] [facility] Start: 09-21-[address] [facility] Start: 09-20-2023 Hospital admission [facility] Start: 10-26-2022 Screening for malign ant neoplasm of breast Mammogram [facility] Start: 01-17-2000 DTaP/Tdap/Td Vaccine s (1 - Tdap) DTaP/Tdap/Td Vaccines (1 - Tdap) [facility] Start: 1999 Screening for malign ant neoplasm of cervix [facility] Start: 1997 Hepatitis B Vaccines (1 of 3 - 19+ 3-dose series) Hepatitis B Vaccines (1 of 3 - 19+ 3-dose series) [facility] Start: 01-17-1996 Hepatitis C screening Hepatitis C [facility] Start: 1979 MMR Vaccines (1 of 1 - Standard series) MMR Vaccines (1 of 1 - Standard series) [facility] Start: 1978 HIV screening HIV Screening [facility] Start: 1978 Lipid panel Lipid Panel [facility] Start: 1978 Screening for malign ant neoplasm of colon [facility] Start: 1978 Yearly Adult Physical Yearly Adult P hysical [facility] Patient Education [facility] Work Phone: Patient referral [facility] Work Phone: Payers Date Payer Category Payer Self-pay 2019 [facility] BCBS Memb er Subscriber Plan / Payer (Effective 2019-Present) Name: Jared Renea Bach Relation to Subscriber: Self Name: Teena Colemanlenlinette Bach Payer ID: Not on file Type: Not on file Address: [facility] [id number] [place] [id number] 2019 [facility] Managed Care [facility] Member Subscriber Plan / Payer (Effective 2019-Present) Name: Samarialeanne Renea Relation to Subscriber: Self Name: Jared Renea Payer ID: [id number] ([facility]) Type: Not on file Address: [address] [place] [id number] 1978 Unknown [id number] 1978 Unknown [id number]. [id number] 1978 Unknown [id number]. [id number] 1978 Unknown [id number]. 2.1259 1978 Unknown [id number] [id number] 1978 Unknown [id number]. 2.1259 1978 Unknown [id number]. 2.1259 1978 Unknown [id number]. 2.1259 1978 Unknown [id number] [id number] 1959 Unknown [id number] Unknown [id number] 2.531 Unknown [id number] [id number] Social History Date Type Detail Facility Unknown if ever smoked [employer] Other Start: 04-07-2024 End: 09-30-2024 Sex Assigned At [facility] Start: 11-01-2022 End: 09-20-2023 Tobacco smoking status PRIS Never smoked tobacco (finding) [facility] Start: 1980 Sex Assigned At Female [facility] Start: 11-01-2022 Tobacco use and exposure Smokeless tobacco non-user [facility] Start: 04-07-2024 End: 09-30-2024 Alcoholic beverage intake Lifetime non-drinker (finding) [facility] Start: 04-07-2024 End: 09-30-2024 History of Social function [facility] How often do you nee d to have someone help you when you read instructions, pamphlets, or other written material from your doctor or pharmacy [SILS] Never [facility] Do you belong to any clubs or organizations such as christian groups, unions, fraternal or athletic groups, or school groups? Yes [facility] Are you now , , , , never or living with a partner? [facility] How often to you hav e a drink containing alcohol? Monthly or less [facility] How often do you hav e 6 or more drinks on 1 occasion? Never [facility] Do you feel stress - tense, restless, nervous, or anxious, or unable to sleep at night because your mind is troubled all the time - these days [OSQ] Only a little [facility] (I/We) worried wheleila er (my/our) food would run out before (I/we) got money to buy more. Never true [facility] In the past 12 month s, was there a time when you were not able to pay the mortgage or rent on time? No [facility] Start: 11-01-2022 Alcohol Comment Caffeine intak e: 2-3 cups per day [facility] Start: 1980 Sex assigned at Not on file [facility] Tobacco smoking stat [facility] Tobacco smoking consumption unknown [facility] Work Phone: Start: 06-01-2024 End: 06-11-2024 Exposure to SARS-CoV-2 (event) Not sure [facility] NEGATED: Highlighted row [facility] Goals Date Patient Goal Desired Activity /State Functional Status Date Assessment Result Facility 09-30-2024 Patient Health Quest ionnaire 2 item (PHQ-2) [Reported] [facility] 09-28-2023 Functional status Patient at Baseline [facility] Work Phone: Mental Status Date Assessment Result Facility 09-28-2023 Cognitive function Cognitive Sta tus Patient at Baseline [facility] Work Phone: Clinical Notes 11-10-2021 to 09-30-2024 Armando Andujar MD - 09/30/2024 1:37 PM Karime Andujar MD - 09/30/2024 1:36 PM Karime Andujar MD - 09/30/2024 1:30 PM Ela Sloan MD - 06/11/2024 9:40 AM EST Note Date & Type Note Facility 09-30-2024 History of Present illness Narrative Associated Problem(s): Annual physical exam Modest Alcohol consumption No Tobacco Seat Belt use Exercise Regularly No Text Drive Social Accountability Associated Problem(s): Benign essential hypertension Our specific goals, for your hypertension, is to keep your blood pressure less than 140/90, and the importance of weight control. We made recommendations on how to control your blood pressure, and minimize your risk of these copmplications. We also discussed your current barriers to a healthy living and importance of healthy diet and exercise. Prior to your visit today we have reviewed your chart and formed a plan to assist with providing you the best possible care. We reviewed the possible complications of hypertension including, stroke, heart failure and kidney impairment. In addition, we discussed your medications, the importance of taking them as prescribed. DASH diet handouts Images from the original note were not included. Subjective Patient ID: Renea Coleman is a 44 y.o. female who presents for Annual Exam. 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 Little interest or pleasure in doing things: Not at all Feeling down, depressed, or hopeless: Not at all Patient Health Questionnaire-2 Score: 0 Current Outpatient Medications on File Prior to Visit Medication Sig Dispense Refill Acetaminophen 500 MG capsule estradiol (Estrace) 1 MG tablet Take 1 tablet (1 mg) by mouth Daily 90 tablet 3 fexofenadine-pseudoephedrine ER (Moni-D 24) 180-240 MG 24 hr tablet Take 1 tablet by mouth Daily Do not crush, chew, or split. 30 tablet 11 ibuprofen 400 MG tablet Take 400 mg by mouth every 6 (six) hours if needed for moderate pain SUMAtriptan (Imitrex) 50 MG tablet every 12 (twelve) hours. No current facility-administered medications on file prior to visit. I have reviewed and reconciled the history and medication list with the patient today. 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 Respiratory: Negative for chest tightness and shortness of breath. Cardiovascular: Negative for leg swelling. Gastrointestinal: Negative for abdominal pain, blood in stool, diarrhea and nausea. Genitourinary: Negative for dysuria, frequency, hematuria, vaginal bleeding and vaginal discharge. Musculoskeletal: Negative for back pain, gait problem and joint swelling. Skin: Negative for rash. Neurological: Positive for headaches. Negative for dizziness, tremors, seizures, weakness and light-headedness. Psychiatric/Behavioral: Negative for agitation, decreased concentration and dysphoric mood. Objective Physical Exam Vitals reviewed. Constitutional: General: She is not in acute distress. Appearance: Normal appearance. HENT: Head: Normocephalic. Right Ear: Tympanic membrane, ear canal and external ear normal. Left Ear: Tympanic membrane, ear canal and external ear normal. Nose: Nose normal. Mouth/Throat: Mouth: Mucous membranes are moist. Eyes: Extraocular Movements: Extraocular movements intact. Conjunctiva/sclera: Conjunctivae normal. Pupils: Pupils are equal, round, and reactive to light. Cardiovascular: Rate and Rhythm: Normal rate and regular rhythm. Pulses: Normal pulses. Heart sounds: Normal heart sounds. Pulmonary: Effort: Pulmonary effort is normal. No respiratory distress. Breath sounds: Normal breath sounds. Abdominal: General: Abdomen is flat. Bowel sounds are normal. Palpations: Abdomen is soft. Tenderness: There is no abdominal tenderness. Musculoskeletal: General: Normal range of motion. Cervical back: Normal range of motion and neck supple. Skin: General: Skin is warm and dry. Capillary Refill: Capillary refill takes 2 to 3 seconds. Neurological: General: No focal deficit present. Mental Status: She is alert and oriented to person, place, and time. Psychiatric: Mood and Affect: Mood normal. Assessment/Plan Problem List Items Addressed This Visit Enlarged thyroid Relevant Orders CBC and differential Comprehensive metabolic panel Lipid panel TSH W/REFLEX TO FT4 Annual physical exam [place] Alcohol consumption No Tobacco Seat Belt use Exercise Regularly No Text Drive Social Accountability Relevant Orders CBC and differential Comprehensive metabolic panel Lipid panel TSH W/REFLEX TO FT4 Benign essential hypertension Our specific goals, for your hypertension, is to keep your blood pressure less than 140/90, and the importance of weight control. We made recommendations on how to control your blood pressure, and minimize your risk of these copmplications. We also discussed your current barriers to a healthy living and importance of healthy diet and exercise. Prior to your visit today we have reviewed your chart and formed a plan to assist with providing you the best possible care. We reviewed the possible complications of hypertension including, stroke, heart failure and kidney impairment. In addition, we discussed your medications, the importance of taking them as prescribed. DASH diet handouts Other Visit Diagnoses Abnormal glucose tolerance test Relevant Orders CBC and differential Comprehensive metabolic panel No follow-ups on file. documented in this encounter [facility] 06-11-2024 History of Present illness Narrative Subjective Patient ID: Renea Coleman is a 44 y.o. female who presents for eustacian tube dysfunction. HPI New patient being seen for Eustachian Tube Dysfunction. Had right ear infection in March 2024 which was treated with multiple rounds of amoxicillin. When symptoms did not resolve, was seen in Urgent Care where she was prescribed Valtrex and prednisone for purported Shingles in ear. Feels that prednisone helped somewhat, but still feeling sensation of ear fullness, pressure. Denies humble otalgia, otorrhea, dizziness, vertigo. Audiogram completed today shows normal hearing bilaterally. No evidence of fluid abnormal pressure levels. Also with complaint of nasal congestion, difficulty breathing through nose. All remaining head neck inquiry otherwise negative. Review of Systems Constitutional: Negative. HENT: right ear pressure, fullness, nasal congestion Respiratory: Negative. Cardiovascular: Negative. Neurological: Negative. Physical Exam General appearance: No acute distress. Normal facies. Symmetric facial movement. No gross lesions of the face are noted. Ears: The external ear structures appear normal. The ear canals patent and the tympanic membranes are intact without evidence of air-fluid levels, retraction, or congenital defects. Nose: Anterior rhinoscopy notes essentially a midline nasal septum. Examination is noted for normal healthy mucosal membranes without any evidence of lesions, polyps, or exudate. Throat/Oral mucosa: The tongue is normally mobile. There are no lesions on the gingiva, buccal, or oral mucosa. There are no oral cavity masses. Neck: The neck is negative for mass lymphadenopathy. The trachea and parotid are clear. The thyroid bed is grossly unremarkable. The salivary gland structures are grossly unremarkable. Assessment/Plan Dysfunction of both Eustachian Tubes. No evidence of ear infection today. Hypertrophy of inferior nasal turbinate Deviated nasal septum Hypertrophy of inferior nasal turbinate Would recommend using nasal steroid spray in the following manner: 2 sprays, twice per day. Follow-up with me in 2 months. If no improvement, we may consider septoplasty and turbinate reduction to optimize patient's airway. documented in this encounter [facility] Work Phone: 04-28-2024 History of Present illness Narrative Associated Problem(s): ETD (Eustachian tube dysfunction), bilateral Consider repeat steroids or Dr. Song Associated Problem(s): Non-recurrent acute suppurative otitis media of right ear without spontaneous rupture of tympanic membrane Ear drums look clear Associated Problem(s): Trigeminal neuralgia of right side of face (CMS/HCC) No rash, never had rash S/P Prednisone and Valtrex Consider repeat Prednisone Images from the original note were not included. Subjective Patient ID: Renea Coleman is a 44 y.o. female who presents for Earache. Pt is here due to previously having a right ear infection , then she went to urgent care where they told her it was possibly shingles in her ear , she was given a steroid and valtrex . Pt is wanting to make sure it is all cleared up They however are still feeling like she needs to pop them or congested , she states the left ear is better then the right ear Had some numbness and tingling Current Outpatient Medications on File Prior to Visit Medication Sig Dispense Refill Acetaminophen 500 MG capsule estradiol (Estrace) 1 MG tablet Take 1 tablet (1 mg) by mouth Daily 90 tablet 3 ibuprofen 400 MG tablet Take 400 mg by mouth every 6 (six) hours if needed for moderate pain SUMAtriptan (Imitrex) 50 MG tablet every 12 (twelve) hours. [DISCONTINUED] amoxicillin (Amoxil) 500 MG tablet Take 2 tablets (1,000 mg) by mouth in the morning and 2 tablets (1,000 mg) before bedtime. Do all this for 10 days. 40 tablet 0 No current facility-administered medications on file prior to visit. I have reviewed and reconciled the history and medication list with the patient today. Allergies Allergen Reactions Codeine Other Reaction(s): Unknown Social History Tobacco Use Smoking status: Never Smokeless tobacco: Never Vaping Use Vaping status: Never Used Substance Use Topics Alcohol use: Never Comment: Caffeine intake: 2-3 cups per day Drug use: Never Family History Problem Relation Name Age of Onset Migraines Mother Cristina Hypertension Father Sina Stroke Father Sina Past Medical History: Diagnosis Date Allergic CPD (cephalo-pelvic disproportion) Migraines (CMS/HCC) Past Surgical History: Procedure Laterality Date SECTION, LOW TRANSVERSE x2 HYSTERECTOMY 09/28/2023 [facility] BSO HYSTEROSCOPY 09/20/2023 D+C WISDOM TOOTH EXTRACTION Visit Vitals BP 132/78 Pulse 72 Ht 5' 9 Wt 181 lb LMP 09/14/2023 SpO2 100% BMI 26.73 kg/m OB Status Hysterectomy Smoking Status Never BSA 2 m Review of Systems Constitutional: Negative for fever. HENT: Positive for ear pain. Pain quit after 2 days Had facial numbness and tingling and Valtrex, and prednisone Objective Physical Exam Constitutional: Appearance: Normal appearance. HENT: Right Ear: There is no impacted cerumen. Left Ear: There is no impacted cerumen. Neurological: Mental Status: She is alert. Assessment/Plan Problem List Items Addressed This Visit Non-recurrent acute suppurative otitis media of right ear without spontaneous rupture of tympanic membrane Ear drums look clear ETD (Eustachian tube dysfunction), bilateral - Primary Consider repeat steroids or Dr. Song Relevant Medications fexofenadine-pseudoephedrine ER (Moni-D 24) 180-240 MG 24 hr tablet Trigeminal neuralgia of right side of face (CMS/HCC) No rash, never had rash S/P Prednisone and Valtrex Consider repeat Prednisone No follow-ups on file. documented in this encounter [facility] 04-07-2024 History of Present illness Narrative Associated Problem(s): Non-recurrent acute suppurative otitis media of right ear without spontaneous rupture of tympanic membrane Add Probiotic to help replenish the good bacteria that are destroyed by the Antibiotics Florastor Florajen Align or try Activia in Yogurt Probiotics reduce the risk of antibiotic induced diarrhea Images from the original note were not included. HPI Establish Care Additional comments: PT HAS NOT BEEN SEEN SINCE 2019 Up to date with labs and mamm. Last edited by Isela Love MA on 04/07/2024 7:28 AM. Subjective Patient ID: Renea Coleman is a 44 y.o. female who presents for Establish Care (PT HAS NOT BEEN SEEN SINCE 2019 /Up to date with labs and mamm.) and Earache. Last Sunday started with sinus pain , yesterday her right ear started hurting with lots of pain felt like it was on fire , will also have some bloody nose's Pt takes sudafed Earache There is pain in the right ear. This is a new problem. The current episode started in the past 7 days. The problem occurs constantly. The problem has been gradually worsening. There has been no fever. The pain is at a severity of 5/10. Associated symptoms include rhinorrhea. Pertinent negatives include no abdominal pain, coughing, diarrhea, ear discharge, headaches, hearing loss, neck pain, rash, sore throat or vomiting. Current Outpatient Medications on File Prior to Visit Medication Sig Dispense Refill Acetaminophen 500 MG capsule estradiol (Estrace) 1 MG tablet Take 1 tablet (1 mg) by mouth Daily 90 tablet 3 ibuprofen 400 MG tablet Take 400 mg by mouth every 6 (six) hours if needed for moderate pain SUMAtriptan (Imitrex) 50 MG tablet every 12 (twelve) hours. [DISCONTINUED] traMADol (Ultram) 50 MG tablet Q4H No current facility-administered medications on file prior to visit. I have reviewed and reconciled the history and medication list with the patient today. Allergies Allergen Reactions Codeine Other Reaction(s): Unknown Social History Tobacco Use Smoking status: Never Smokeless tobacco: Never Vaping Use Vaping status: Never Used Substance Use Topics Alcohol use: Never Comment: Caffeine intake: 2-3 cups per day Drug use: Never Family History Problem Relation Name Age of Onset Migraines Mother Cristina Hypertension Father Sina Stroke Father Sina Past Medical History: Diagnosis Date Allergic CPD (cephalo-pelvic disproportion) Migraines ([facility]) Past Surgical History: Procedure Laterality Date SECTION, LOW TRANSVERSE x2 HYSTERECTOMY 09/28/2023 [facility] BSO HYSTEROSCOPY 09/20/2023 D+C WISDOM TOOTH EXTRACTION Visit Vitals LMP 09/14/2023 OB Status Hysterectomy Smoking Status Never Review of Systems Constitutional: Negative for fever. HENT: Positive for ear pain and rhinorrhea. Negative for ear discharge, hearing loss and sore throat. Respiratory: Negative for cough. Gastrointestinal: Negative for abdominal pain, diarrhea and vomiting. Musculoskeletal: Negative for neck pain. Skin: Negative for rash. Neurological: Negative for headaches. Objective Physical Exam Constitutional: General: She is not in acute distress. Appearance: Normal appearance. HENT: Head: Normocephalic. Right Ear: External ear normal. Tympanic membrane is erythematous and bulging. Cardiovascular: Rate and Rhythm: Normal rate and regular rhythm. Pulmonary: Effort: Pulmonary effort is normal. No respiratory distress. Breath sounds: Normal breath sounds. Neurological: General: No focal deficit present. Mental Status: She is alert and oriented to person, place, and time. Psychiatric: Mood and Affect: Mood normal. Assessment/Plan Problem List Items Addressed This Visit Non-recurrent acute suppurative otitis media of right ear without spontaneous rupture of tympanic membrane - Primary Add Probiotic to help replenish the good bacteria that are destroyed by the Antibiotics Florastor Florajen Align or try Activia in Yogurt Probiotics reduce the risk of antibiotic induced diarrhea Relevant Medications amoxicillin (Amoxil) 500 MG tablet No follow-ups on file. documented in this encounter [facility] 11-10-2021 Evaluation note Encounter Date Diagnosis Assessment Notes Oct, Hornet sting, accidental or unintentional, initial encounter (ICD-10 - T63.451A) Take medications as directed. Complete all doses. May try Calamine lotion and or Baking soda in bathtub for comfort. Follow up with primary care provider if no improvement of symptoms with treatment plan [employer] Other Evaluation noteNo assessment information available [facility] Work Phone: Evaluation note* Diagnosis Non-recurrent acute suppurative otitis media of right ear without spontaneous rupture of tympanic membrane- Primary documented in this encounter [facility] HealthcareEvaluation note* Diagnosis Non-recurrent acute suppurative otitis media of right ear without spontaneous rupture of tympanic membrane- Primary ETD (Eustachian tube dysfunction), bilateral- Primary Trigeminal neuralgia of right side of face (CMS/HCC) Non-recurrent acute suppurative otitis media of right ear without spontaneous rupture of tympanic membrane documented in this encounter [facility] HealthcareEvaluation note* Diagnosis Dysfunction of both eustachian tubes- Primary Hypertrophy of inferior nasal turbinate Deviated nasal septum documented in this encounter [facility] Work Phone: Evaluation note* Diagnosis Non-recurrent acute suppurative otitis media of right ear without spontaneous rupture of tympanic membrane- Primary ETD (Eustachian tube dysfunction), bilateral- Primary Trigeminal neuralgia of right side of face Non-recurrent acute suppurative otitis media of right ear without spontaneous rupture of tympanic membrane Abnormal glucose tolerance test Impaired glucose tolerance test Benign essential hypertension Essential hypertension, benign Enlarged thyroid Goiter, unspecified Annual physical exam Routine general medical examination at a health care facility documented in this encounter [facility] Narrative - Reported* Type Description Date Medical History allergies Surgical History C section Surgical History wisdom teeth Hospitalization History see above [employer] Other Hospital Discharge instructions Additional Instructions DISCHARGE INSTRUCTIONS FOR DILATION & CURETTAGE (D & C) -Today, outpatient surgery has become a vital link in the health care program. Outpatient D&C is a safe and common practice and this paper is designed to help you know what to expect when you go home and under what circumstances you should give me a call. I will have all of your labs and surgery reports for you when you come in for your follow-up. -To reach me in an emergency, call the office at [[phone]]. TODAY -Take it easy the rest of the day. If you have received a general anesthetic or injections to help you relax for the local procedure you should not drive a car for at least 8 hours after surgery to make sure all of the medication has worn off. ACTIVITIES -There are no restrictions on your normal activities. Generally, you may expect to go back to work the next day unless I have given you other instructions. You should shower daily and practice good personal habits to offset the chance of infection. Avoid intercourse for one week after your surgery and you should not douche. Most women experience minimal disruption of their normal routines. BLEEDING -The amount of bleeding after a D&C varies somewhat. Some women have very little requiring onlya light pad for a few days. Other women may bleed similar to a heavy period for a week or so. [You may wear Tampax if you wish, but be sure to change often.] Do not be alarmed if you expel some clots. -If I have given you a prescription to control bleeding, get it filled on your way home, if possible, and take all the pills according to the directions on the bottle. These pills may increase the amount of your flow and give you cramping similar to first day menstrual cramps. Two Motrin every 6 hours or Anaprox every 12 hours and a heating pad should be sufficient to control any discomfort you may have. If your bleeding becomes bright red and becomes heavy enough that you have used one full pad an hour times 4 hours, I want you to give me a call. Also, if within the first week after surgery you experience chills, fever, and a change in the odor, color, or character of your drainage, you may be developing an infection and you should call me. You may expect your next period anywhere from 2 to 6 weeks after your D&C. CONTROL -Do not assume that you cannot get soon after a D&C. Practice your usual method of control beginning with the first time you have intercourse after you have surgery. If you are taking control pills, please continue them unless told otherwise. DIET -Any diet is permissible DR. COSTELLO OFFICE WILL CALL YOU ON SUNDAY. YOU ARE GETTING A HYSTERECTOMY ON Sunday09/27/23. TAKE 3 TUMS ULTRA STRENGTH 800MG A DAY UNTIL SURGERY. WE WILL REDRAW YOUR LABS BEFORE SURGERY. TAKE VITAMIN WITH IRON DAILY. DISCHARGE INSTRUCTIONS FOR GENERAL SURGERY YOUR ACTIVITY MAY INCLUDE: -[Going up and down stairs slowly.] -[Walking around the house or outside if the weather is satisfactory.] -[No driving until you are seen in office and cleared for driving.] -Light housework or light work permitted in [2 weeks]. -Heavy lifting permitted [when] At your first office visit we will discuss: [Return to work, return to sports, return to exercise, etc.] WOUND CARE/INCISION CARE: -Keep incision clean and dry -[Showering, tub baths] -[Is it common to feel pulling or sharp sticking sensations in the area of incision, these sensations are a part of the normal healing process.] -[If you develop fever, increasing pain, redness, or swelling around the incision, please notify our office] MEDICATION -[Resume all previous medications that you were taking for problems unrelated to your surgery, unless informed otherwise. If there are any problems with this, please call the original prescribing doctor. If you have any other questions regarding medications, please call our office.] -[Over the counter medications such as Acetaminophen, Ibuprofen, Naproxen, and others may be used as directed for pain unless a prescription was provided.] DR. MCCAULEY STATES TO JUST CHILL UNTIL SURGERY. DR. MCCAULEY'S OFFICE AT [facility] [phone]. [ ][facility] Work Phone: Hospital Discharge instructions Additional Instructions DISCHARGE INSTRUCTIONS FOR HYSTERECTOMY (TVH, LAVH, TLH) -During your time at home until your first office appointment we recommend that you assume the same type of activities that you have been doing while in the hospital. You may ride in the car unless otherwise specifically told not to. Unless specifically otherwise stated, generally you may drive the car when you feel strong enough to make emergency manuevers as needed. -You may walk up and down stairs. At first take one step at a time -- one step - stop, one step - stop, one step - stop. -You may do light housework, such as dusting, dishes, and cooking. -From your first office visit until the six week postoperative examination we recommend that you do not do any heavy lifting or straining, that you do not do any vacuuming, mopping, or sweeping. -We advise that you do not lift any heavy grocery bags from the cart to the car or from the car home. -We recommend that you do not do any yard work such as shoveling of snow, raking of leaves, cutting grass or gardening. -We recommend that you do not make beds or lift mattresses to change fitted sheets. -Light bleeding is normal for the first 4 weeks (i.e. changing panty liner 3 - 4 times a day.) Call me or go to the Emergency Room for heavy bleeding (soaking a maxipad every hour for 4 hours.) -Call the office or go to the Emergency Room if unable to reach me for fever, chills, worsening pain, persistent nausea/vomiting. -Call the office or go to the Emergency Room for shortness of breath, pain in your calfs or unusual swelling in your legs. -Showers are allowed until the vaginal drainage stops, then tub baths are generally acceptable unless otherwise specifically denied. -You will be advised at your first office visit when you may resume intercourse. This will be dependent upon the type of surgery performed. -We recommend that you use home remedies such as aspirin, Tylenol, Motrin for pain, Milk of Magnesia for laxative. If these preparations do not take care of your problem we want to be called and notified of your distress. -Please get prescriptions filled upon leaving the hospital and follow directions as outlined. Please note the refill limitations on the prescription. -If you have any specific questions not covered by these instructions please feel free to contact myself or one of the nurses who will answer your questions with my recommendations. -These instructions are intended to be a guideline for your postoperative care and recovery and are by no means intended to be totally complete. FOLLOW UP -[Please call the office at ([phone]) to make follow appointment before leaving the hospital]. -[2 Weeks] [ ][facility] Work Phone: Summary Purpose Family History No Family History Records Found Relationship Condition Age at Onset Recorded Date/T americo father History of stroke Unknown Unknown Hypertension Unknown Not Specified Unknown Advance Directives No Advanced Directives Records Found Advance Directive Response Recorded Date/ Time Advance Directives No September 19 9:47am Chief Complaint and Reason for Visit Chief Complaint Menorrhagia Chief Complaint Menorrhagia cyst of right ovary, mennorhagia, dysmenorrhagia, Additional Source Comments INFORMATION SOURCE (unrecogn ized section and content) DATE CREATED AUTHOR 11/01/2021 [facility] DATE CREATED AUTHOR AUTHOR'S ORGANIZ ATION 11/13/2023 [facility] DATE CREATED AUTHOR AUTHOR'S ORGANIZ ATION 06/13/2024 [facility] DATE CREATED AUTHOR AUTHOR'S ORGANIZ ATION 10/03/2024 [facility] EPIC DATE CREATED AUTHOR AUTHOR'S ORGANIZ ATION 10/04/2024 [facility] REASON FOR VISIT (unrecogniz ed section and content) Reason Comments Establish Care PT HAS NOT BEEN SEEN SINCE 2019 Up to date with labs and mamm. Earache Reason Comments Earache Reason Comments eustacian tube dysfunction Reason Comments Annual Exam Care Teams (unrecognized sec tion and content) Team Status: Active Member Role Status Dates Armando Andujar MD Primary Care Provider Active Team Status: Inactive Member Role Status Dates Vesta Mccauley DO Attending Provider Active Start: September 20, 2023 End: September 21, 2023 Armando Andujar MD Primary Care Provider Active S tart: September 20, 2023 End: September 21, 2023 Team Status: Inactive Member Role Status Dates Armando Andujar MD Primary Care Provider Active S tart: September 28, 2023 End: September 28, 2023 Vesta Mccauley DO Attending Provider Active Start: September 28, 2023 End: September 28, 2023 Hanger Relationship Specialty Start Date End Date Armando Andujar MD [address] [facility] [address] [place] [address] PCP - [facility] 11/01/22 Hanger Relationship Specialty Start Date End Date Armando Andujar MD [address] [facility] [address] [place] [address] PCP - [facility] 11/01/22 Hanger Relationship Specialty Start Date End Date Armando Andujar MD [address] [facility] [address] [place] [address] PCP - [facility] 05/08/24 Hanger Relationship Specialty Start Date End Date Armando Andujar MD [address] [facility] [address] [place] [address] PCP - [facility] 11/01/22 Armando Andujar MD [address] [facility] [address] [place] [address] [facility] 05/17/24 FOR RECORDS PERTAINING TO PATIENTS WHO ARE OR HAVE BEEN ENROLLED IN A CHEMICAL DEPENDENCY/SUBSTANCEABUSE PROGRAM, SOME INFORMATION MAY BE OMITTED. This clinical summary was aggregated from multiple sources. Caution should be exercised in using it in the provision of clinical care. This summary normalizes information from multiple sources, and as a consequence, information in this document may materially change the coding, format and clinical context of patient data. In addition, data may be omitted in some cases. CLINICAL DECISIONS SHOULD BE BASED ON THE PRIMARY CLINICAL RECORDS. [employer] [facility]. provides no warranty or guarantee of the accuracy or completeness of information in this document.
== END 2024-11-03 07:31 | disposition home or self-care (01) ==
LOC: MAMMO 07:31
PROVIDERS: PCP Family Medicine; Visit Provider Obstetrics & Gynecology
DX: Z12.31 Encounter for screening mammogram for malignant neoplasm of breast (principal)
CPT/HCPCS: 77063; 77067